=== PATIENT | female | born 1935 | race Caucasian/White ===

== ENCOUNTER → 2016-07-31 | Outpatient (REF) | payer MEDICARE ==
[~2016-07-31] MED LIST: ALBU17IN2 INH; ALBU83IN INH; ALPR0.25 PO; ASPI1TAB24 PO; AVEL1TAB PO; MUCI600T34 PO; NICO14PA TD; OS CAL PO; PLAV75TA38 PO; PRED20TAB PO; PRIL20CA9 PO; PRIL20TA2 PO; VIT D PO
== END ==
LOC: M LAB REF 12:16
PROVIDERS: ATTEND Internal Medicine Medical Oncology
DX: C18.9 Malignant neoplasm of colon, unspecified (principal)

== ENCOUNTER → 2016-09-30 | Outpatient (REF) | payer MEDICARE | LOC: M LAB REF 13:13 | PROVIDERS: ATTEND Internal Medicine Medical Oncology | DX: C26.0 Malignant neoplasm of intestinal tract, part unspecified (principal) ==

== ENCOUNTER → 2017-01-21 | Outpatient (REF) | payer MEDICARE ==
[~2017-01-21] MED LIST changes: +ASPI-161 PO; -ASPI1TAB24 PO; -AVEL1TAB PO; +AVEL1TAB3 PO; -MUCI600T34 PO; +MUCI600T37 PO; +PLAV1TAB2 PO; -PLAV75TA38 PO
== END ==
LOC: M LAB REF 13:39
PROVIDERS: ATTEND Internal Medicine Medical Oncology
DX: C18.9 Malignant neoplasm of colon, unspecified (principal)

== ENCOUNTER 2017-05-13 22:42 | Inpatient (IN) | payer MEDICARE, MEDICAID ==
[2017-05-13] MEDS: NS 500 ML IV (23:15)
[2017-05-13 23:21] LABS: BASO % 0.8 % (0.0-1.0); EOS # 0.2 10^3/uL (0.0-0.50); EOS % 3.2 % (0.0-3.0); HEMATOCRIT 35.8 % (36.0-47.0); HEMOGLOBIN 11.7 g/dl (12.0-16.0); IMMATURE GRANULOCYTE % 0.2 % (0-0); LYMPH # 1.7 10^3/uL (1.5-4.5); LYMPH % 34.4 % (24.0-44.0); MEAN CORPUSCULAR HEMOGLOBIN 29.9 pg (27.0-33.0); MEAN CORPUSCULAR HGB CONC 32.7 g/dl (32.0-36.5); MEAN CORPUSCULAR VOLUME 91.6 fl (80.0-96.0); MONO # 0.5 10^3/uL (0.0-0.8); MONO % 10.5 % (0.0-5.0); NEUTROPHILS # 2.5 10^3/uL (1.8-7.7); NEUTROPHILS % 50.9 % (36.0-66.0); PLATELET COUNT, AUTOMATED 196 10^3/uL (150-450); RED BLOOD COUNT 3.91 10^6/uL (4.00-5.40); RED CELL DISTRIBUTION WIDTH 13.4 % (11.5-14.5); WHITE BLOOD COUNT 4.9 10^3/uL (4.0-10.0)
[2017-05-13 23:37] LABS: OSMOLALITY SERUM 302 MOSM/KG (280-301)
[2017-05-13 23:40] LABS: AMMONIA 20 uMOL/L (<32)
[2017-05-13 23:44] LABS: LACTIC ACID SEPSIS PROTOCOL 0.7 MMOL/L (0.4-2.0)
[2017-05-13 23:54] LABS: ALBUMIN 3.4 GM/DL (3.2-5.2); ALBUMIN/GLOBULIN RATIO 1.21 (1.00-1.93); ALKALINE PHOSPHATASE 97 U/L (45-117); ALT/SGPT 13 U/L (12-78); ANION GAP 7 MEQ/L (8-16); AST/SGOT 17 U/L (7-37); BILIRUBIN,DIRECT 0.1 MG/DL (0.0-0.2); BILIRUBIN,TOTAL 0.3 MG/DL (0.2-1.0); BLOOD UREA NITROGEN 31 MG/DL (7-18); CALCIUM LEVEL 8.4 MG/DL (8.8-10.2); CARBON DIOXIDE LEVEL 28 MEQ/L (21-32); CHLORIDE LEVEL 108 MEQ/L (98-107); CPK CREATINE PHOSPHOKINASE 57 U/L (26-192); CREATININE FOR GFR 1.78 MG/DL (0.55-1.02); ETHYL ALCOHOL (ETHANOL) < 0.003 % (0.000-0.010); GLOMERULAR FILTRATION RATE 29.1 (>32); GLUCOSE, FASTING 128 MG/DL (83-110); POTASSIUM SERUM 3.8 MEQ/L (3.5-5.1); SODIUM LEVEL 143 MEQ/L (136-145); TOTAL PROTEIN 6.2 GM/DL (6.4-8.2); TROPONIN I < 0.02 NG/ML (< 0.10)
[2017-05-14] LABS: CK-MB VALUE MASS 1.2 NG/ML (0.0-3.6)
[2017-05-14 00:14] LABS: ABG BASE EXCESS 0.2 (-2.0-2.0); ABG O2 SATURATION 95.7 % (95.0-99.0); ABG STANDARD HCO3 24.6 MEQ/L (22.0-26.0); ABG TOTAL CO2 25.1 MEQ/L (23.0-31.0); ABG pH (ARTERIAL) 7.441 UNITS (7.350-7.450)
[2017-05-14 01:13] LABS: KETONE, URINE AUTO RFX NEGATIVE (NEGATIVE); LEUKOCYTE ESTERASE UR AUTO RFX 2+ (NEGATIVE); MUCUS, URINE RFX SMALL (NEGATIVE); NITRITE, URINE AUTO RFX NEGATIVE (NEGATIVE); RBC, URINE AUTO RFX 3 /HPF (0-3); SPECIFIC GRAVITY UR AUTO RFX 1.012 (1.002-1.035); SQUAM EPITHELIAL CELL UR AURFX 0 /HPF (0-6); WBC, URINE AUTO RFX 9 /HPF (0-3)
[2017-05-14] MEDS: NS 500 ML IV (02:00)
[2017-05-14] MEDS: NS 1,000 ML IV (03:45)
[2017-05-14] MEDS: CEFTRIAXONE SOD 1 GM in APPROPRIATE DILUENT 1 EA IV (04:00)
[2017-05-14] MEDS ORDERED: CLOPIDOGREL 75 MG TAB PO (09:00)
[2017-05-14] MEDS ORDERED: ASPIRIN 81 MG ENTERIC TAB PO (09:00)
[2017-05-14] MEDS ORDERED: ROSUVASTATIN 10 MG TAB (CRESTOR) PO (09:00)
[2017-05-14] MEDS: ROSUVASTATIN 10 MG TAB (CRESTOR) PO (09:47)
[2017-05-14] MEDS: ASPIRIN 81 MG ENTERIC TAB PO (09:48)
[2017-05-14] MEDS: CLOPIDOGREL 75 MG TAB PO (09:48)
[2017-05-14] MEDS ORDERED: zolPIDEM TARTRATE 5 MG TAB PO (21:00)
[2017-05-14] MEDS ORDERED: QUEtiapine FUMARATE 50 MG TAB PO (21:00)
[2017-05-14] MEDS ORDERED: traZODone 50 MG TAB PO ×2 (21:00)
[2017-05-14] MEDS: RAMELTEON 8 MG TAB (ROZEREM) PO (21:41)
[2017-05-14] MEDS: QUEtiapine FUMARATE 50 MG TAB PO (21:41)
[2017-05-15] MEDS: CEFTRIAXONE SOD 1 GM in APPROPRIATE DILUENT 1 EA IV (04:18)
[2017-05-15 06:31] LABS: HEMATOCRIT 35.4 % (36.0-47.0); HEMOGLOBIN 11.7 g/dl (12.0-16.0); MEAN CORPUSCULAR HEMOGLOBIN 29.8 pg (27.0-33.0); MEAN CORPUSCULAR HGB CONC 33.1 g/dl (32.0-36.5); MEAN CORPUSCULAR VOLUME 90.3 fl (80.0-96.0); PLATELET COUNT, AUTOMATED 176 10^3/uL (150-450); RED BLOOD COUNT 3.92 10^6/uL (4.00-5.40); RED CELL DISTRIBUTION WIDTH 13.4 % (11.5-14.5); WHITE BLOOD COUNT 4.7 10^3/uL (4.0-10.0)
[2017-05-15 07:09] LABS: ANION GAP 8 MEQ/L (8-16); BLOOD UREA NITROGEN 22 MG/DL (7-18); CALCIUM LEVEL 8.1 MG/DL (8.8-10.2); CARBON DIOXIDE LEVEL 22 MEQ/L (21-32); CHLORIDE LEVEL 114 MEQ/L (98-107); CREATININE FOR GFR 1.36 MG/DL (0.55-1.02); GLOMERULAR FILTRATION RATE 39.7 (>32); GLUCOSE, FASTING 77 MG/DL (83-110); POTASSIUM SERUM 4.2 MEQ/L (3.5-5.1); SODIUM LEVEL 144 MEQ/L (136-145)
[2017-05-15] MEDS: CLOPIDOGREL 75 MG TAB PO (09:18)
[2017-05-15] MEDS: ASPIRIN 81 MG ENTERIC TAB PO (09:18)
[2017-05-15] MEDS: ROSUVASTATIN 10 MG TAB (CRESTOR) PO (09:18)
[2017-05-15 09:51] LABS: FREE T4 1.06 NG/DL (0.76-1.46)
[2017-05-15] MEDS ORDERED: KCL 20MEQ IN 0.45NS 1000ML 1,000 ML IV (10:00)
[2017-05-15] MEDS: HALOPERIDOL 0.25MG PER 1/2 TABLET PO ×2 (14:18→21:09)
[2017-05-15] MEDS: RAMELTEON 8 MG TAB (ROZEREM) PO (21:09)
[2017-05-15] MEDS: QUEtiapine FUMARATE 50 MG TAB PO (21:09)
[2017-05-15] MEDS: CALCIUM CARBONATE 500 MG CHEW U/D PO (21:46)
[2017-05-16] MEDS: diphenhydrAMINE 25 MG CAP PO (00:45)
[2017-05-16 08:25] LABS: HEMATOCRIT 36.9 % (36.0-47.0); HEMOGLOBIN 12.2 g/dl (12.0-16.0); MEAN CORPUSCULAR HEMOGLOBIN 29.9 pg (27.0-33.0); MEAN CORPUSCULAR HGB CONC 33.1 g/dl (32.0-36.5); MEAN CORPUSCULAR VOLUME 90.4 fl (80.0-96.0); PLATELET COUNT, AUTOMATED 185 10^3/uL (150-450); RED BLOOD COUNT 4.08 10^6/uL (4.00-5.40); RED CELL DISTRIBUTION WIDTH 13.3 % (11.5-14.5); WHITE BLOOD COUNT 4.3 10^3/uL (4.0-10.0)
[2017-05-16] MEDS: ROSUVASTATIN 10 MG TAB (CRESTOR) PO (08:32)
[2017-05-16] MEDS: CLOPIDOGREL 75 MG TAB PO (08:32)
[2017-05-16] MEDS: ASPIRIN 81 MG ENTERIC TAB PO (08:32)
[2017-05-16] MEDS: HALOPERIDOL 0.25MG PER 1/2 TABLET PO (08:32)
[2017-05-16 08:47] LABS: ANION GAP 7 MEQ/L (8-16); BLOOD UREA NITROGEN 24 MG/DL (7-18); CALCIUM LEVEL 8.3 MG/DL (8.8-10.2); CARBON DIOXIDE LEVEL 23 MEQ/L (21-32); CHLORIDE LEVEL 113 MEQ/L (98-107); CREATININE FOR GFR 1.55 MG/DL (0.55-1.02); GLOMERULAR FILTRATION RATE 34.2 (>32); GLUCOSE, FASTING 81 MG/DL (83-110); POTASSIUM SERUM 4.9 MEQ/L (3.5-5.1); SODIUM LEVEL 143 MEQ/L (136-145)
[2017-05-16] MEDS ORDERED: D5W/0.45% SODIUM CHLORIDE 1,000 ML IV (11:30)
[2017-05-16] MEDS: NS 1,000 ML IV (12:25)
[2017-05-16] MEDS: RAMELTEON 8 MG TAB (ROZEREM) PO (21:01)
[2017-05-16] MEDS: HALOPERIDOL 0.5 MG TAB PO (21:01)
[2017-05-16] MEDS: QUEtiapine FUMARATE 50 MG TAB PO (21:01)
[2017-05-17 07:17] LABS: HEMATOCRIT 36.7 % (36.0-47.0); HEMOGLOBIN 12.2 g/dl (12.0-16.0); MEAN CORPUSCULAR HEMOGLOBIN 30.5 pg (27.0-33.0); MEAN CORPUSCULAR HGB CONC 33.2 g/dl (32.0-36.5); MEAN CORPUSCULAR VOLUME 91.8 fl (80.0-96.0); PLATELET COUNT, AUTOMATED 188 10^3/uL (150-450); RED CELL DISTRIBUTION WIDTH 13.5 % (11.5-14.5); WHITE BLOOD COUNT 4.8 10^3/uL (4.0-10.0)
[2017-05-17 07:28] LABS: ANION GAP 7 MEQ/L (8-16); BLOOD UREA NITROGEN 30 MG/DL (7-18); CALCIUM LEVEL 8.4 MG/DL (8.8-10.2); CARBON DIOXIDE LEVEL 26 MEQ/L (21-32); CHLORIDE LEVEL 111 MEQ/L (98-107); CREATININE FOR GFR 1.56 MG/DL (0.55-1.02); GLOMERULAR FILTRATION RATE 33.9 (>32); GLUCOSE, FASTING 84 MG/DL (83-110); POTASSIUM SERUM 4.6 MEQ/L (3.5-5.1); SODIUM LEVEL 144 MEQ/L (136-145)
[2017-05-17] MEDS: HALOPERIDOL 0.5 MG TAB PO ×2 (09:48→20:26)
[2017-05-17] MEDS: ASPIRIN 81 MG ENTERIC TAB PO (09:48)
[2017-05-17] MEDS: ROSUVASTATIN 10 MG TAB (CRESTOR) PO (09:48)
[2017-05-17] MEDS: CLOPIDOGREL 75 MG TAB PO (09:48)
[2017-05-17 10:30] LABS: VITAMIN B12 LEVEL 259 PG/ML
[2017-05-17 10:31] LABS: FOLATE 23.5 NG/ML
[2017-05-17] MEDS: HALOPERIDOL 0.25MG PER 1/2 TABLET PO (14:32)
[2017-05-17] MEDS: QUEtiapine FUMARATE 50 MG TAB PO (20:26)
[2017-05-17] MEDS: RAMELTEON 8 MG TAB (ROZEREM) PO (20:26)
[2017-05-17] MEDS ORDERED: HALOPERIDOL 5 MG/ML VIAL (J1630) IM (21:00)
[2017-05-17] MEDS: diphenhydrAMINE 25 MG CAP PO (22:40)
[2017-05-18] MEDS: HALOPERIDOL 5 MG/ML VIAL (J1630) IM (00:24)
[2017-05-18] MEDS: HALOPERIDOL 0.25MG PER 1/2 TABLET PO ×2 (02:15→15:57)
[2017-05-18 06:43] LABS: HEMATOCRIT 35.9 % (36.0-47.0); HEMOGLOBIN 11.8 g/dl (12.0-16.0); MEAN CORPUSCULAR HEMOGLOBIN 29.9 pg (27.0-33.0); MEAN CORPUSCULAR HGB CONC 32.9 g/dl (32.0-36.5); MEAN CORPUSCULAR VOLUME 91.1 fl (80.0-96.0); PLATELET COUNT, AUTOMATED 181 10^3/uL (150-450); RED BLOOD COUNT 3.94 10^6/uL (4.00-5.40); RED CELL DISTRIBUTION WIDTH 13.5 % (11.5-14.5); WHITE BLOOD COUNT 4.9 10^3/uL (4.0-10.0)
[2017-05-18 06:56] LABS: ANION GAP 8 MEQ/L (8-16); BLOOD UREA NITROGEN 35 MG/DL (7-18); CALCIUM LEVEL 8.7 MG/DL (8.8-10.2); CARBON DIOXIDE LEVEL 25 MEQ/L (21-32); CHLORIDE LEVEL 111 MEQ/L (98-107); CREATININE FOR GFR 1.68 MG/DL (0.55-1.02); GLOMERULAR FILTRATION RATE 31.1 (>32); GLUCOSE, FASTING 78 MG/DL (83-110); POTASSIUM SERUM 4.2 MEQ/L (3.5-5.1); SODIUM LEVEL 144 MEQ/L (136-145)
[2017-05-18] MEDS: CLOPIDOGREL 75 MG TAB PO (08:41)
[2017-05-18] MEDS: HALOPERIDOL 0.5 MG TAB PO ×2 (08:41→20:52)
[2017-05-18] MEDS: ASPIRIN 81 MG ENTERIC TAB PO (08:41)
[2017-05-18] MEDS: QUEtiapine FUMARATE 25 MG TAB PO ×2 (08:41→20:52)
[2017-05-18] MEDS: ROSUVASTATIN 10 MG TAB (CRESTOR) PO (08:41)
[2017-05-18] MEDS: NS 1,000 ML IV (09:05)
[2017-05-18] MEDS: HEPARIN SOD (PORCINE) 5000 UNITS/ML VIAL SQ ×2 (15:57→21:00)
[2017-05-18] MEDS: RAMELTEON 8 MG TAB (ROZEREM) PO (20:52)
[2017-05-19] MEDS: HEPARIN SOD (PORCINE) 5000 UNITS/ML VIAL SQ ×3 (05:59→21:08)
[2017-05-19 06:23] LABS: HEMATOCRIT 33.4 % (36.0-47.0); HEMOGLOBIN 11.2 g/dl (12.0-16.0); MEAN CORPUSCULAR HEMOGLOBIN 29.6 pg (27.0-33.0); MEAN CORPUSCULAR HGB CONC 33.5 g/dl (32.0-36.5); MEAN CORPUSCULAR VOLUME 88.4 fl (80.0-96.0); PLATELET COUNT, AUTOMATED 165 10^3/uL (150-450); RED BLOOD COUNT 3.78 10^6/uL (4.00-5.40); RED CELL DISTRIBUTION WIDTH 13.6 % (11.5-14.5); WHITE BLOOD COUNT 4.2 10^3/uL (4.0-10.0)
[2017-05-19 06:38] LABS: ANION GAP 8 MEQ/L (8-16); BLOOD UREA NITROGEN 36 MG/DL (7-18); CARBON DIOXIDE LEVEL 23 MEQ/L (21-32); CHLORIDE LEVEL 114 MEQ/L (98-107); CREATININE FOR GFR 1.43 MG/DL (0.55-1.02); GLOMERULAR FILTRATION RATE 37.5 (>32); GLUCOSE, FASTING 83 MG/DL (83-110); POTASSIUM SERUM 4.4 MEQ/L (3.5-5.1); SODIUM LEVEL 145 MEQ/L (136-145)
[2017-05-19] MEDS: ASPIRIN 81 MG ENTERIC TAB PO (09:49)
[2017-05-19] MEDS: QUEtiapine FUMARATE 25 MG TAB PO ×2 (09:49→21:08)
[2017-05-19] MEDS: HALOPERIDOL 0.5 MG TAB PO ×2 (09:49→21:08)
[2017-05-19] MEDS: ROSUVASTATIN 10 MG TAB (CRESTOR) PO (09:49)
[2017-05-19] MEDS: CLOPIDOGREL 75 MG TAB PO (09:49)
[2017-05-19] MEDS: HALOPERIDOL 0.25MG PER 1/2 TABLET PO ×2 (14:31→22:11)
[2017-05-19] MEDS: CALCIUM CARBONATE 500 MG CHEW U/D PO (18:54)
[2017-05-19] MEDS: RAMELTEON 8 MG TAB (ROZEREM) PO (21:08)
[2017-05-19] MEDS: HALOPERIDOL 1 MG TAB PO (23:40)
[2017-05-20] MEDS: HEPARIN SOD (PORCINE) 5000 UNITS/ML VIAL SQ (05:17)
[2017-05-20 07:24] LABS: HEMATOCRIT 34.6 % (36.0-47.0); HEMOGLOBIN 11.3 g/dl (12.0-16.0); MEAN CORPUSCULAR HEMOGLOBIN 29.3 pg (27.0-33.0); MEAN CORPUSCULAR HGB CONC 32.7 g/dl (32.0-36.5); MEAN CORPUSCULAR VOLUME 89.6 fl (80.0-96.0); PLATELET COUNT, AUTOMATED 177 10^3/uL (150-450); RED BLOOD COUNT 3.86 10^6/uL (4.00-5.40); RED CELL DISTRIBUTION WIDTH 13.4 % (11.5-14.5); WHITE BLOOD COUNT 4.5 10^3/uL (4.0-10.0)
[2017-05-20 07:41] LABS: ANION GAP 7 MEQ/L (8-16); BLOOD UREA NITROGEN 33 MG/DL (7-18); CALCIUM LEVEL 8.6 MG/DL (8.8-10.2); CARBON DIOXIDE LEVEL 26 MEQ/L (21-32); CHLORIDE LEVEL 112 MEQ/L (98-107); CREATININE FOR GFR 1.65 MG/DL (0.55-1.02); GLOMERULAR FILTRATION RATE 31.8 (>32); GLUCOSE, FASTING 73 MG/DL (83-110); POTASSIUM SERUM 4.4 MEQ/L (3.5-5.1); SODIUM LEVEL 145 MEQ/L (136-145)
[2017-05-20] MEDS: CLOPIDOGREL 75 MG TAB PO (09:33)
[2017-05-20] MEDS: QUEtiapine FUMARATE 25 MG TAB PO ×2 (09:33→21:24)
[2017-05-20] MEDS: HALOPERIDOL 0.5 MG TAB PO ×2 (09:33→21:25)
[2017-05-20] MEDS: ROSUVASTATIN 10 MG TAB (CRESTOR) PO (09:33)
[2017-05-20] MEDS: ASPIRIN 81 MG ENTERIC TAB PO (09:33)
[2017-05-20] MEDS: RAMELTEON 8 MG TAB (ROZEREM) PO (21:24)
[2017-05-21] MEDS: HALOPERIDOL 5 MG/ML VIAL (J1630) IM (01:45)
[2017-05-21 07:00] LABS: HEMATOCRIT 34.4 % (36.0-47.0); HEMOGLOBIN 11.1 g/dl (12.0-16.0); MEAN CORPUSCULAR HEMOGLOBIN 29.5 pg (27.0-33.0); MEAN CORPUSCULAR HGB CONC 32.3 g/dl (32.0-36.5); MEAN CORPUSCULAR VOLUME 91.5 fl (80.0-96.0); PLATELET COUNT, AUTOMATED 165 10^3/uL (150-450); RED BLOOD COUNT 3.76 10^6/uL (4.00-5.40); RED CELL DISTRIBUTION WIDTH 13.7 % (11.5-14.5); WHITE BLOOD COUNT 4.3 10^3/uL (4.0-10.0)
[2017-05-21 07:18] LABS: ANION GAP 10 MEQ/L (8-16); BLOOD UREA NITROGEN 36 MG/DL (7-18); CALCIUM LEVEL 8.3 MG/DL (8.8-10.2); CARBON DIOXIDE LEVEL 23 MEQ/L (21-32); CHLORIDE LEVEL 112 MEQ/L (98-107); CREATININE FOR GFR 1.56 MG/DL (0.55-1.02); GLOMERULAR FILTRATION RATE 33.9 (>32); GLUCOSE, FASTING 88 MG/DL (83-110); POTASSIUM SERUM 4.7 MEQ/L (3.5-5.1); SODIUM LEVEL 145 MEQ/L (136-145)
[2017-05-21] MEDS: CLOPIDOGREL 75 MG TAB PO (09:19)
[2017-05-21] MEDS: ROSUVASTATIN 10 MG TAB (CRESTOR) PO (09:19)
[2017-05-21] MEDS: QUEtiapine FUMARATE 25 MG TAB PO ×2 (09:19→20:49)
[2017-05-21] MEDS: HALOPERIDOL 0.5 MG TAB PO ×2 (09:19→20:49)
[2017-05-21] MEDS: ASPIRIN 81 MG ENTERIC TAB PO (09:19)
[2017-05-21] MEDS: RAMELTEON 8 MG TAB (ROZEREM) PO (20:49)
[2017-05-22 08:43] LABS: ANION GAP 8 MEQ/L (8-16); BLOOD UREA NITROGEN 37 MG/DL (7-18); CALCIUM LEVEL 8.5 MG/DL (8.8-10.2); CARBON DIOXIDE LEVEL 26 MEQ/L (21-32); CHLORIDE LEVEL 108 MEQ/L (98-107); CREATININE FOR GFR 1.61 MG/DL (0.55-1.02); GLOMERULAR FILTRATION RATE 32.7 (>32); GLUCOSE, FASTING 103 MG/DL (83-110); MAGNESIUM LEVEL 2.3 MG/DL (1.8-2.4); POTASSIUM SERUM 4.5 MEQ/L (3.5-5.1); SODIUM LEVEL 142 MEQ/L (136-145)
[2017-05-22] MEDS: CLOPIDOGREL 75 MG TAB PO (08:47)
[2017-05-22] MEDS: QUEtiapine FUMARATE 25 MG TAB PO ×2 (08:47→20:06)
[2017-05-22] MEDS: ASPIRIN 81 MG ENTERIC TAB PO (08:47)
[2017-05-22] MEDS: ROSUVASTATIN 10 MG TAB (CRESTOR) PO (08:47)
[2017-05-22] MEDS: HALOPERIDOL 0.5 MG TAB PO ×2 (08:47→20:06)
[2017-05-22 08:52] LABS: HEMATOCRIT 34.8 % (36.0-47.0); HEMOGLOBIN 11.4 g/dl (12.0-16.0); MEAN CORPUSCULAR HEMOGLOBIN 29.8 pg (27.0-33.0); MEAN CORPUSCULAR HGB CONC 32.8 g/dl (32.0-36.5); MEAN CORPUSCULAR VOLUME 90.9 fl (80.0-96.0); PLATELET COUNT, AUTOMATED 168 10^3/uL (150-450); RED BLOOD COUNT 3.83 10^6/uL (4.00-5.40); RED CELL DISTRIBUTION WIDTH 13.6 % (11.5-14.5); WHITE BLOOD COUNT 4.7 10^3/uL (4.0-10.0)
[2017-05-22] MEDS: RAMELTEON 8 MG TAB (ROZEREM) PO (20:06)
[2017-05-23 07:58] LABS: HEMATOCRIT 34.3 % (36.0-47.0); HEMOGLOBIN 11.4 g/dl (12.0-16.0); MEAN CORPUSCULAR HEMOGLOBIN 30.1 pg (27.0-33.0); MEAN CORPUSCULAR HGB CONC 33.2 g/dl (32.0-36.5); MEAN CORPUSCULAR VOLUME 90.5 fl (80.0-96.0); PLATELET COUNT, AUTOMATED 176 10^3/uL (150-450); RED BLOOD COUNT 3.79 10^6/uL (4.00-5.40); RED CELL DISTRIBUTION WIDTH 13.7 % (11.5-14.5); WHITE BLOOD COUNT 4.6 10^3/uL (4.0-10.0)
[2017-05-23 08:30] LABS: ANION GAP 6 MEQ/L (8-16); BLOOD UREA NITROGEN 42 MG/DL (7-18); CALCIUM LEVEL 8.5 MG/DL (8.8-10.2); CARBON DIOXIDE LEVEL 27 MEQ/L (21-32); CHLORIDE LEVEL 110 MEQ/L (98-107); CREATININE FOR GFR 1.74 MG/DL (0.55-1.02); GLOMERULAR FILTRATION RATE 29.9 (>32); GLUCOSE, FASTING 94 MG/DL (83-110); MAGNESIUM LEVEL 2.5 MG/DL (1.8-2.4); POTASSIUM SERUM 4.6 MEQ/L (3.5-5.1); SODIUM LEVEL 143 MEQ/L (136-145)
[2017-05-23] MEDS: CLOPIDOGREL 75 MG TAB PO (10:10)
[2017-05-23] MEDS: HALOPERIDOL 0.5 MG TAB PO ×2 (10:10→21:23)
[2017-05-23] MEDS: ROSUVASTATIN 10 MG TAB (CRESTOR) PO (10:10)
[2017-05-23] MEDS: ASPIRIN 81 MG ENTERIC TAB PO (10:10)
[2017-05-23] MEDS: QUEtiapine FUMARATE 25 MG TAB PO ×2 (10:10→21:23)
[2017-05-23] MEDS: FUROSEMIDE 20 MG TAB PO (12:06)
[2017-05-23] MEDS: RAMELTEON 8 MG TAB (ROZEREM) PO (21:23)
[2017-05-24] MEDS: QUEtiapine FUMARATE 25 MG TAB PO ×2 (09:08→20:11)
[2017-05-24] MEDS: HALOPERIDOL 0.5 MG TAB PO ×2 (09:08→20:11)
[2017-05-24] MEDS: ROSUVASTATIN 10 MG TAB (CRESTOR) PO (09:08)
[2017-05-24] MEDS: ASPIRIN 81 MG ENTERIC TAB PO (09:08)
[2017-05-24] MEDS: CLOPIDOGREL 75 MG TAB PO (09:08)
[2017-05-24 09:37] LABS: HEMOGLOBIN 12.3 g/dl (12.0-16.0); MEAN CORPUSCULAR HEMOGLOBIN 29.9 pg (27.0-33.0); MEAN CORPUSCULAR HGB CONC 33.2 g/dl (32.0-36.5); PLATELET COUNT, AUTOMATED 183 10^3/uL (150-450); RED BLOOD COUNT 4.11 10^6/uL (4.00-5.40); RED CELL DISTRIBUTION WIDTH 13.3 % (11.5-14.5); WHITE BLOOD COUNT 4.1 10^3/uL (4.0-10.0)
[2017-05-24 09:50] LABS: ANION GAP 8 MEQ/L (8-16); BLOOD UREA NITROGEN 38 MG/DL (7-18); CALCIUM LEVEL 8.4 MG/DL (8.8-10.2); CARBON DIOXIDE LEVEL 26 MEQ/L (21-32); CHLORIDE LEVEL 109 MEQ/L (98-107); CREATININE FOR GFR 1.86 MG/DL (0.55-1.02); GLOMERULAR FILTRATION RATE 27.7 (>32); GLUCOSE, FASTING 112 MG/DL (83-110); MAGNESIUM LEVEL 2.4 MG/DL (1.8-2.4); POTASSIUM SERUM 4.5 MEQ/L (3.5-5.1); SODIUM LEVEL 143 MEQ/L (136-145)
[2017-05-24] MEDS: RAMELTEON 8 MG TAB (ROZEREM) PO (20:11)
[2017-05-24] MEDS: HALOPERIDOL 1 MG TAB PO (21:53)
[2017-05-25] MEDS: ASPIRIN 81 MG ENTERIC TAB PO (09:12)
[2017-05-25] MEDS: ROSUVASTATIN 10 MG TAB (CRESTOR) PO (09:12)
[2017-05-25] MEDS: CLOPIDOGREL 75 MG TAB PO (09:12)
[2017-05-25] MEDS: HALOPERIDOL 0.5 MG TAB PO ×2 (09:12→19:38)
[2017-05-25] MEDS: QUEtiapine FUMARATE 25 MG TAB PO ×2 (09:12→19:38)
[2017-05-25 09:56] LABS: HEMATOCRIT 37.5 % (36.0-47.0); HEMOGLOBIN 12.3 g/dl (12.0-16.0); MEAN CORPUSCULAR HEMOGLOBIN 29.6 pg (27.0-33.0); MEAN CORPUSCULAR HGB CONC 32.8 g/dl (32.0-36.5); MEAN CORPUSCULAR VOLUME 90.1 fl (80.0-96.0); PLATELET COUNT, AUTOMATED 185 10^3/uL (150-450); RED BLOOD COUNT 4.16 10^6/uL (4.00-5.40); RED CELL DISTRIBUTION WIDTH 13.2 % (11.5-14.5); WHITE BLOOD COUNT 4.1 10^3/uL (4.0-10.0)
[2017-05-25 10:18] LABS: ANION GAP 8 MEQ/L (8-16); BLOOD UREA NITROGEN 38 MG/DL (7-18); CALCIUM LEVEL 8.6 MG/DL (8.8-10.2); CARBON DIOXIDE LEVEL 27 MEQ/L (21-32); CHLORIDE LEVEL 108 MEQ/L (98-107); CREATININE FOR GFR 1.86 MG/DL (0.55-1.02); GLOMERULAR FILTRATION RATE 27.7 (>32); GLUCOSE, FASTING 77 MG/DL (83-110); MAGNESIUM LEVEL 2.5 MG/DL (1.8-2.4); POTASSIUM SERUM 4.5 MEQ/L (3.5-5.1); SODIUM LEVEL 143 MEQ/L (136-145)
[2017-05-25] MEDS: ACETAMINOPHEN TAB 650MG DOSE (2X325MG) PO (13:13)
[2017-05-25] MEDS: SODIUM CHLORIDE 0.9% INJ 10 ML SYR IV (15:27)
[2017-05-25] MEDS ORDERED: NS 1,000 ML IV (15:45)
[2017-05-25] MEDS: SODIUM CHLORIDE 0.9% 1000 ML IV (17:20)
[2017-05-25 18:19] LABS: APPEARANCE, URINE CLEAR (CLEAR); BACTERIA, URINE AUTO NEGATIVE (NEGATIVE); BILIRUBIN, URINE AUTO NEGATIVE (NEGATIVE); BLOOD, URINE BLOOD NEGATIVE (NEGATIVE); COLOR, URINE STRAW (YELLOW); GLUCOSE, URINE (UA) AUTO NEGATIVE (NEGATIVE); KETONE, URINE AUTO NEGATIVE (NEGATIVE); LEUKOCYTE ESTERASE, URINE AUTO NEGATIVE (NEGATIVE); NITRITE, URINE AUTO NEGATIVE (NEGATIVE); PROTEIN, URINE AUTO NEGATIVE (NEGATIVE); RBC, URINE AUTO 2 /HPF (0-3); SPECIFIC GRAVITY URINE AUTO 1.005 (1.002-1.035); SQUAMOUS EPITHELIAL CELL UR AU 0 /HPF (0-6); UROBILINOGEN, URINE AUTO 0.2 mg/dL (0.0-2.0); WBC, URINE AUTO 1 /HPF (0-3)
[2017-05-25] MEDS: NS 1,000 ML IV ×2 (18:32→23:11)
[2017-05-25 19:12] LABS: CREATININE,RANDOM URINE 41.5 MG/DL
[2017-05-25 19:12] LABS: SODIUM,RANDOM URINE 30 MEQ/L
[2017-05-25] MEDS: RAMELTEON 8 MG TAB (ROZEREM) PO (19:38)
[2017-05-25] MEDS: HALOPERIDOL 1 MG TAB PO (19:38)
[2017-05-26] MEDS: HALOPERIDOL 0.5 MG TAB PO ×2 (08:50→21:05)
[2017-05-26] MEDS: ASPIRIN 81 MG ENTERIC TAB PO (08:50)
[2017-05-26] MEDS: CLOPIDOGREL 75 MG TAB PO (08:50)
[2017-05-26] MEDS: QUEtiapine FUMARATE 25 MG TAB PO ×2 (08:50→21:05)
[2017-05-26] MEDS: ROSUVASTATIN 10 MG TAB (CRESTOR) PO (08:50)
[2017-05-26 11:14] LABS: HEMATOCRIT 34.6 % (36.0-47.0); HEMOGLOBIN 11.3 g/dl (12.0-16.0); MEAN CORPUSCULAR HEMOGLOBIN 30.1 pg (27.0-33.0); MEAN CORPUSCULAR HGB CONC 32.7 g/dl (32.0-36.5); PLATELET COUNT, AUTOMATED 171 10^3/uL (150-450); RED BLOOD COUNT 3.76 10^6/uL (4.00-5.40); RED CELL DISTRIBUTION WIDTH 13.3 % (11.5-14.5); WHITE BLOOD COUNT 3.6 10^3/uL (4.0-10.0)
[2017-05-26 11:49] LABS: ANION GAP 8 MEQ/L (8-16); BLOOD UREA NITROGEN 33 MG/DL (7-18); CALCIUM LEVEL 8.2 MG/DL (8.8-10.2); CARBON DIOXIDE LEVEL 23 MEQ/L (21-32); CHLORIDE LEVEL 112 MEQ/L (98-107); CREATININE FOR GFR 1.62 MG/DL (0.55-1.02); GLOMERULAR FILTRATION RATE 32.5 (>32); GLUCOSE, FASTING 93 MG/DL (83-110); MAGNESIUM LEVEL 2.5 MG/DL (1.8-2.4); POTASSIUM SERUM 4.4 MEQ/L (3.5-5.1); SODIUM LEVEL 143 MEQ/L (136-145)
[2017-05-26] MEDS: RAMELTEON 8 MG TAB (ROZEREM) PO (21:05)
[2017-05-27 06:04] LABS: HEMATOCRIT 32.8 % (36.0-47.0); HEMOGLOBIN 10.7 g/dl (12.0-16.0); MEAN CORPUSCULAR HEMOGLOBIN 29.6 pg (27.0-33.0); MEAN CORPUSCULAR HGB CONC 32.6 g/dl (32.0-36.5); MEAN CORPUSCULAR VOLUME 90.9 fl (80.0-96.0); PLATELET COUNT, AUTOMATED 164 10^3/uL (150-450); RED BLOOD COUNT 3.61 10^6/uL (4.00-5.40); RED CELL DISTRIBUTION WIDTH 13.4 % (11.5-14.5); WHITE BLOOD COUNT 4.4 10^3/uL (4.0-10.0)
[2017-05-27 06:25] LABS: ANION GAP 7 MEQ/L (8-16); BLOOD UREA NITROGEN 31 MG/DL (7-18); CALCIUM LEVEL 8.2 MG/DL (8.8-10.2); CARBON DIOXIDE LEVEL 24 MEQ/L (21-32); CHLORIDE LEVEL 113 MEQ/L (98-107); CREATININE FOR GFR 1.58 MG/DL (0.55-1.02); GLOMERULAR FILTRATION RATE 33.4 (>32); GLUCOSE, FASTING 79 MG/DL (83-110); MAGNESIUM LEVEL 2.3 MG/DL (1.8-2.4); POTASSIUM SERUM 4.2 MEQ/L (3.5-5.1); SODIUM LEVEL 144 MEQ/L (136-145)
[2017-05-27] MEDS: ASPIRIN 81 MG ENTERIC TAB PO (09:09)
[2017-05-27] MEDS: CLOPIDOGREL 75 MG TAB PO (09:09)
[2017-05-27] MEDS: QUEtiapine FUMARATE 25 MG TAB PO ×2 (09:09→20:40)
[2017-05-27] MEDS: HALOPERIDOL 0.5 MG TAB PO ×2 (09:09→20:40)
[2017-05-27] MEDS: ROSUVASTATIN 10 MG TAB (CRESTOR) PO (09:09)
[2017-05-27] MEDS: RAMELTEON 8 MG TAB (ROZEREM) PO (20:40)
[2017-05-27] MEDS: ACETAMINOPHEN TAB 650MG DOSE (2X325MG) PO (20:41)
[2017-05-28 06:48] LABS: HEMATOCRIT 34.8 % (36.0-47.0); HEMOGLOBIN 11.3 g/dl (12.0-16.0); MEAN CORPUSCULAR HEMOGLOBIN 29.7 pg (27.0-33.0); MEAN CORPUSCULAR HGB CONC 32.5 g/dl (32.0-36.5); MEAN CORPUSCULAR VOLUME 91.3 fl (80.0-96.0); PLATELET COUNT, AUTOMATED 171 10^3/uL (150-450); RED BLOOD COUNT 3.81 10^6/uL (4.00-5.40); RED CELL DISTRIBUTION WIDTH 13.3 % (11.5-14.5); WHITE BLOOD COUNT 4.6 10^3/uL (4.0-10.0)
[2017-05-28 07:11] LABS: ANION GAP 7 MEQ/L (8-16); BLOOD UREA NITROGEN 36 MG/DL (7-18); CALCIUM LEVEL 8.7 MG/DL (8.8-10.2); CARBON DIOXIDE LEVEL 25 MEQ/L (21-32); CHLORIDE LEVEL 112 MEQ/L (98-107); CREATININE FOR GFR 1.54 MG/DL (0.55-1.02); GLOMERULAR FILTRATION RATE 34.4 (>32); GLUCOSE, FASTING 83 MG/DL (83-110); MAGNESIUM LEVEL 2.3 MG/DL (1.8-2.4); POTASSIUM SERUM 4.2 MEQ/L (3.5-5.1); SODIUM LEVEL 144 MEQ/L (136-145)
[2017-05-28] MEDS: CLOPIDOGREL 75 MG TAB PO ×2 (08:50→08:59)
[2017-05-28] MEDS: HALOPERIDOL 0.5 MG TAB PO ×2 (08:50→21:17)
[2017-05-28] MEDS: ASPIRIN 81 MG ENTERIC TAB PO ×2 (08:50→08:59)
[2017-05-28] MEDS: ROSUVASTATIN 10 MG TAB (CRESTOR) PO (08:50)
[2017-05-28] MEDS: QUEtiapine FUMARATE 25 MG TAB PO ×2 (08:50→21:18)
[2017-05-28] MEDS: HALOPERIDOL 5 MG/ML VIAL (J1630) IM (09:49)
[2017-05-28] MEDS: RAMELTEON 8 MG TAB (ROZEREM) PO (21:17)
[2017-05-29 05:58] LABS: HEMATOCRIT 33.1 % (36.0-47.0); HEMOGLOBIN 10.8 g/dl (12.0-16.0); MEAN CORPUSCULAR HEMOGLOBIN 29.3 pg (27.0-33.0); MEAN CORPUSCULAR HGB CONC 32.6 g/dl (32.0-36.5); MEAN CORPUSCULAR VOLUME 89.9 fl (80.0-96.0); PLATELET COUNT, AUTOMATED 196 10^3/uL (150-450); RED BLOOD COUNT 3.68 10^6/uL (4.00-5.40); RED CELL DISTRIBUTION WIDTH 13.4 % (11.5-14.5); WHITE BLOOD COUNT 5.6 10^3/uL (4.0-10.0)
[2017-05-29 06:23] LABS: ANION GAP 8 MEQ/L (8-16); BLOOD UREA NITROGEN 31 MG/DL (7-18); CALCIUM LEVEL 8.3 MG/DL (8.8-10.2); CARBON DIOXIDE LEVEL 24 MEQ/L (21-32); CHLORIDE LEVEL 112 MEQ/L (98-107); CREATININE FOR GFR 1.63 MG/DL (0.55-1.02); GLOMERULAR FILTRATION RATE 32.2 (>32); GLUCOSE, FASTING 84 MG/DL (83-110); MAGNESIUM LEVEL 2.4 MG/DL (1.8-2.4); POTASSIUM SERUM 4.5 MEQ/L (3.5-5.1); SODIUM LEVEL 144 MEQ/L (136-145)
[2017-05-29] MEDS: QUEtiapine FUMARATE 25 MG TAB PO ×2 (08:50→21:49)
[2017-05-29] MEDS: ROSUVASTATIN 10 MG TAB (CRESTOR) PO (08:50)
[2017-05-29] MEDS: ASPIRIN 81 MG ENTERIC TAB PO (08:50)
[2017-05-29] MEDS: CLOPIDOGREL 75 MG TAB PO (08:50)
[2017-05-29] MEDS: HALOPERIDOL 0.5 MG TAB PO ×2 (08:50→21:49)
[2017-05-29] MEDS: RAMELTEON 8 MG TAB (ROZEREM) PO (21:49)
[2017-05-30] MEDS: QUEtiapine FUMARATE 25 MG TAB PO ×2 (07:50→20:30)
[2017-05-30] MEDS: HALOPERIDOL 0.5 MG TAB PO ×2 (07:50→20:30)
[2017-05-30] MEDS: ROSUVASTATIN 10 MG TAB (CRESTOR) PO (07:51)
[2017-05-30] MEDS: ASPIRIN 81 MG ENTERIC TAB PO (07:51)
[2017-05-30] MEDS: CLOPIDOGREL 75 MG TAB PO (07:51)
[2017-05-30 09:47] LABS: HEMATOCRIT 35.2 % (36.0-47.0); HEMOGLOBIN 11.5 g/dl (12.0-16.0); MEAN CORPUSCULAR HEMOGLOBIN 29.9 pg (27.0-33.0); MEAN CORPUSCULAR HGB CONC 32.7 g/dl (32.0-36.5); MEAN CORPUSCULAR VOLUME 91.4 fl (80.0-96.0); PLATELET COUNT, AUTOMATED 189 10^3/uL (150-450); RED BLOOD COUNT 3.85 10^6/uL (4.00-5.40); RED CELL DISTRIBUTION WIDTH 13.4 % (11.5-14.5); WHITE BLOOD COUNT 5.8 10^3/uL (4.0-10.0)
[2017-05-30 10:08] LABS: ANION GAP 8 MEQ/L (8-16); BLOOD UREA NITROGEN 28 MG/DL (7-18); CALCIUM LEVEL 8.4 MG/DL (8.8-10.2); CARBON DIOXIDE LEVEL 26 MEQ/L (21-32); CHLORIDE LEVEL 111 MEQ/L (98-107); CREATININE FOR GFR 1.73 MG/DL (0.55-1.02); GLOMERULAR FILTRATION RATE 30.1 (>32); GLUCOSE, FASTING 98 MG/DL (83-110); MAGNESIUM LEVEL 2.4 MG/DL (1.8-2.4); POTASSIUM SERUM 4.6 MEQ/L (3.5-5.1); SODIUM LEVEL 145 MEQ/L (136-145)
[2017-05-30] MEDS: RAMELTEON 8 MG TAB (ROZEREM) PO (20:30)
[2017-05-31] MEDS: HALOPERIDOL 0.5 MG TAB PO ×2 (09:12→20:19)
[2017-05-31] MEDS: QUEtiapine FUMARATE 25 MG TAB PO ×2 (09:12→20:19)
[2017-05-31] MEDS: ROSUVASTATIN 10 MG TAB (CRESTOR) PO (09:12)
[2017-05-31] MEDS: CLOPIDOGREL 75 MG TAB PO (09:12)
[2017-05-31] MEDS: ASPIRIN 81 MG ENTERIC TAB PO (09:12)
[2017-05-31] MEDS: RAMELTEON 8 MG TAB (ROZEREM) PO (20:19)
[2017-06-01 07:24] LABS: HEMATOCRIT 34.6 % (36.0-47.0); HEMOGLOBIN 11.3 g/dl (12.0-16.0); MEAN CORPUSCULAR HEMOGLOBIN 29.6 pg (27.0-33.0); MEAN CORPUSCULAR HGB CONC 32.7 g/dl (32.0-36.5); MEAN CORPUSCULAR VOLUME 90.6 fl (80.0-96.0); PLATELET COUNT, AUTOMATED 179 10^3/uL (150-450); RED BLOOD COUNT 3.82 10^6/uL (4.00-5.40); RED CELL DISTRIBUTION WIDTH 13.1 % (11.5-14.5); WHITE BLOOD COUNT 3.7 10^3/uL (4.0-10.0)
[2017-06-01 07:50] LABS: ANION GAP 7 MEQ/L (8-16); BLOOD UREA NITROGEN 32 MG/DL (7-18); CALCIUM LEVEL 8.4 MG/DL (8.8-10.2); CARBON DIOXIDE LEVEL 26 MEQ/L (21-32); CHLORIDE LEVEL 110 MEQ/L (98-107); CREATININE FOR GFR 1.48 MG/DL (0.55-1.02); GLUCOSE, FASTING 78 MG/DL (83-110); MAGNESIUM LEVEL 2.3 MG/DL (1.8-2.4); POTASSIUM SERUM 4.1 MEQ/L (3.5-5.1); SODIUM LEVEL 143 MEQ/L (136-145)
[2017-06-01] MEDS: ASPIRIN 81 MG ENTERIC TAB PO (10:03)
[2017-06-01] MEDS: CLOPIDOGREL 75 MG TAB PO (10:03)
[2017-06-01] MEDS: QUEtiapine FUMARATE 25 MG TAB PO ×2 (10:03→20:58)
[2017-06-01] MEDS: HALOPERIDOL 0.5 MG TAB PO ×2 (10:03→20:58)
[2017-06-01] MEDS: ROSUVASTATIN 10 MG TAB (CRESTOR) PO (10:03)
[2017-06-01] MEDS: ACETAMINOPHEN TAB 650MG DOSE (2X325MG) PO (20:58)
[2017-06-01] MEDS: RAMELTEON 8 MG TAB (ROZEREM) PO (20:58)
[2017-06-02] MEDS: QUEtiapine FUMARATE 25 MG TAB PO ×3 (08:25→21:01)
[2017-06-02] MEDS: CLOPIDOGREL 75 MG TAB PO ×2 (08:25→08:31)
[2017-06-02] MEDS: ASPIRIN 81 MG ENTERIC TAB PO ×2 (08:25→08:31)
[2017-06-02] MEDS: ROSUVASTATIN 10 MG TAB (CRESTOR) PO ×2 (08:25→08:31)
[2017-06-02] MEDS: HALOPERIDOL 0.5 MG TAB PO ×3 (08:25→21:02)
[2017-06-02] MEDS: RAMELTEON 8 MG TAB (ROZEREM) PO (21:01)
[2017-06-02] MEDS: ACETAMINOPHEN TAB 650MG DOSE (2X325MG) PO (21:01)
[2017-06-03] MEDS: ASPIRIN 81 MG ENTERIC TAB PO (10:16)
[2017-06-03] MEDS: CLOPIDOGREL 75 MG TAB PO (10:16)
[2017-06-03] MEDS: HALOPERIDOL 0.5 MG TAB PO (10:16)
[2017-06-03] MEDS: QUEtiapine FUMARATE 25 MG TAB PO (10:16)
[2017-06-03] MEDS: ROSUVASTATIN 10 MG TAB (CRESTOR) PO (10:16)
== END 2017-06-03 11:58 | DRG 884 ==
LOC: M ED 22:42 → M MSPAV 05-17 16:56 → M ED INP 22:43 → M MS4PR 05-14 06:40
DX: F03.91 Unspecified dementia, unspecified severity, with behavioral disturbance (principal); R41.0 Disorientation, unspecified; I25.10 Atherosclerotic heart disease of native coronary artery without angina pectoris; E78.5 Hyperlipidemia, unspecified; K21.9 Gastro-esophageal reflux disease without esophagitis; M19.90 Unspecified osteoarthritis, unspecified site; N18.3 Chronic kidney disease, stage 3 (moderate); M25.572 Pain in left ankle and joints of left foot; F41.1 Generalized anxiety disorder; Z95.9 Presence of cardiac and vascular implant and graft, unspecified; Z85.038 Personal history of other malignant neoplasm of large intestine; Z90.2 Acquired absence of lung [part of]; Z85.118 Personal history of other malignant neoplasm of bronchus and lung; I25.2 Old myocardial infarction; Z90.49 Acquired absence of other specified parts of digestive tract; Z98.41 Cataract extraction status, right eye; Z98.42 Cataract extraction status, left eye; Z79.82 Long term (current) use of aspirin; Z79.899 Other long term (current) drug therapy; Z79.02 Long term (current) use of antithrombotics/antiplatelets

== ENCOUNTER → 2017-06-10 | Outpatient (REF) | payer MEDICARE, MEDICAID ==
[2017-06-10 09:39] LABS: HEMATOCRIT 33.9 % (36.0-47.0); HEMOGLOBIN 11.3 g/dl (12.0-16.0); MEAN CORPUSCULAR HEMOGLOBIN 30.1 pg (27.0-33.0); MEAN CORPUSCULAR HGB CONC 33.3 g/dl (32.0-36.5); MEAN CORPUSCULAR VOLUME 90.2 fl (80.0-96.0); PLATELET COUNT, AUTOMATED 177 10^3/uL (150-450); RED BLOOD COUNT 3.76 10^6/uL (4.00-5.40); RED CELL DISTRIBUTION WIDTH 13.2 % (11.5-14.5); WHITE BLOOD COUNT 4.7 10^3/uL (4.0-10.0)
[2017-06-10 10:33] LABS: ALBUMIN 3.2 GM/DL (3.2-5.2); ALBUMIN/GLOBULIN RATIO 1.07 (1.00-1.93); ALKALINE PHOSPHATASE 104 U/L (45-117); ALT/SGPT 15 U/L (12-78); ANION GAP 8 MEQ/L (8-16); AST/SGOT 19 U/L (7-37); BILIRUBIN,TOTAL 0.3 MG/DL (0.2-1.0); BLOOD UREA NITROGEN 38 MG/DL (7-18); CALCIUM LEVEL 8.9 MG/DL (8.8-10.2); CARBON DIOXIDE LEVEL 28 MEQ/L (21-32); CHLORIDE LEVEL 108 MEQ/L (98-107); CREATININE FOR GFR 1.65 MG/DL (0.55-1.02); GLOMERULAR FILTRATION RATE 31.8 (>32); GLUCOSE, FASTING 87 MG/DL (83-110); IRON (FE) 32 UG/DL (50-170); NT-PRO BNP 611 PG/ML (<450); SODIUM LEVEL 144 MEQ/L (136-145); THYROID STIMULATING HORMONE 0.841 uIU/ML (0.358-3.740); TOTAL PROTEIN 6.2 GM/DL (6.4-8.2)
== END ==
LOC: SKLAB6 07:00
DX: D64.9 Anemia, unspecified (principal); Z79.899 Other long term (current) drug therapy; R60.0 Localized edema
CPT/HCPCS: 83540

== ENCOUNTER → 2017-06-17 | Outpatient (REF) | payer MEDICARE, MEDICAID ==
[2017-06-17 10:23] LABS: ANION GAP 7 MEQ/L (8-16); BLOOD UREA NITROGEN 39 MG/DL (7-18); CALCIUM LEVEL 8.5 MG/DL (8.8-10.2); CARBON DIOXIDE LEVEL 30 MEQ/L (21-32); CHLORIDE LEVEL 104 MEQ/L (98-107); CREATININE FOR GFR 1.77 MG/DL (0.55-1.02); GLOMERULAR FILTRATION RATE 29.3 (>32); GLUCOSE, FASTING 99 MG/DL (83-110); SODIUM LEVEL 141 MEQ/L (136-145)
== END ==
LOC: SKLAB6 07:00
DX: Z00.00 Encounter for general adult medical examination without abnormal findings (principal)
CPT/HCPCS: 36415

== ENCOUNTER → 2017-09-29 | Outpatient (REF) | payer MEDICARE, MEDICAID | LOC: SKLAB6 22:20 | DX: S52.592A Other fractures of lower end of left radius, initial encounter for closed fracture (principal); W19.XXXA Unspecified fall, initial encounter | CPT/HCPCS: 73110 ==

== ENCOUNTER 2017-09-30 00:40 | Emergency (ER) | payer MEDICARE, MEDICAID | END 2017-09-30 03:17 | disposition home or self-care (01) | LOC: M ED 00:40 | DX: S52.502A Unspecified fracture of the lower end of left radius, initial encounter for closed fracture (principal); W19.XXXA Unspecified fall, initial encounter; Y92.129 Unspecified place in nursing home as the place of occurrence of the external cause; Y93.9 Activity, unspecified; Y99.9 Unspecified external cause status; F03.90 Unspecified dementia, unspecified severity, without behavioral disturbance, psychotic disturbance, mood disturbance, and anxiety; J30.2 Other seasonal allergic rhinitis; Z79.82 Long term (current) use of aspirin; Z79.899 Other long term (current) drug therapy | CPT/HCPCS: 99283 ==

== ENCOUNTER 2017-10-03 23:19 | Emergency (ER) | payer MEDICARE, MEDICAID | END 2017-10-04 00:21 | disposition home or self-care (01) | LOC: M ED 23:19 | DX: Z46.89 Encounter for fitting and adjustment of other specified devices (principal); R22.32 Localized swelling, mass and lump, left upper limb; S52.502D Unspecified fracture of the lower end of left radius, subsequent encounter for closed fracture with routine healing; X58.XXXD Exposure to other specified factors, subsequent encounter; Y92.89 Other specified places as the place of occurrence of the external cause; I25.10 Atherosclerotic heart disease of native coronary artery without angina pectoris; I25.2 Old myocardial infarction; R41.82 Altered mental status, unspecified; Z95.5 Presence of coronary angioplasty implant and graft; Z79.899 Other long term (current) drug therapy; Z79.82 Long term (current) use of aspirin | CPT/HCPCS: 99282 ==

== ENCOUNTER 2017-10-07 16:18 | Emergency (ER) | payer MEDICARE, MEDICAID | END 2017-10-07 19:23 | disposition home or self-care (01) | LOC: M ED 16:18 | DX: R22.32 Localized swelling, mass and lump, left upper limb (principal); J44.9 Chronic obstructive pulmonary disease, unspecified; N18.9 Chronic kidney disease, unspecified; E78.5 Hyperlipidemia, unspecified; F03.90 Unspecified dementia, unspecified severity, without behavioral disturbance, psychotic disturbance, mood disturbance, and anxiety; K21.9 Gastro-esophageal reflux disease without esophagitis; F41.9 Anxiety disorder, unspecified; I25.2 Old myocardial infarction; S52.502D Unspecified fracture of the lower end of left radius, subsequent encounter for closed fracture with routine healing; W18.39XD Other fall on same level, subsequent encounter; Y92.128 Other place in nursing home as the place of occurrence of the external cause; Z79.02 Long term (current) use of antithrombotics/antiplatelets; Z79.82 Long term (current) use of aspirin; Z79.899 Other long term (current) drug therapy; Z87.891 Personal history of nicotine dependence | CPT/HCPCS: 99283 ==

== ENCOUNTER → 2017-12-09 | Outpatient (POV) | payer MEDICARE, MEDICAID ==
[2017-12-09 09:43] LABS: HEMATOCRIT 35.9 % (36.0-47.0); HEMOGLOBIN 11.7 g/dl (12.0-15.5); MEAN CORPUSCULAR HEMOGLOBIN 29.9 pg (27.0-33.0); MEAN CORPUSCULAR HGB CONC 32.6 g/dl (32.0-36.5); MEAN CORPUSCULAR VOLUME 91.8 fl (80.0-96.0); PLATELET COUNT, AUTOMATED 211 10^3/uL (150-450); RED BLOOD COUNT 3.91 10^6/uL (4.00-5.40); RED CELL DISTRIBUTION WIDTH 14.6 % (11.5-14.5); WHITE BLOOD COUNT 9.3 10^3/uL (4.0-10.0)
[2017-12-09 10:11] LABS: ALBUMIN 3.2 GM/DL (3.2-5.2); ALKALINE PHOSPHATASE 106 U/L (45-117); ALT/SGPT 15 U/L (12-78); ANION GAP 9 MEQ/L (8-16); AST/SGOT 12 U/L (7-37); BILIRUBIN,TOTAL 0.3 MG/DL (0.2-1.0); BLOOD UREA NITROGEN 49 MG/DL (7-18); CALCIUM LEVEL 8.9 MG/DL (8.8-10.2); CARBON DIOXIDE LEVEL 28 MEQ/L (21-32); CHLORIDE LEVEL 105 MEQ/L (98-107); GLOMERULAR FILTRATION RATE 35.5 (>32); GLUCOSE, FASTING 151 MG/DL (70-100); IRON (FE) 27 UG/DL (50-170); SODIUM LEVEL 142 MEQ/L (136-145); TOTAL PROTEIN 7.2 GM/DL (6.4-8.2)
== END ==
LOC: SKLAB6 08:00
DX: D64.9 Anemia, unspecified (principal); I25.10 Atherosclerotic heart disease of native coronary artery without angina pectoris; N18.9 Chronic kidney disease, unspecified
CPT/HCPCS: 83540

== ENCOUNTER → 2018-06-09 | Outpatient (REF) | payer MEDICARE ==
[~2018-06-09] MED LIST changes: +ACET1TAB55 PO; +ASPI81TA21 PO; +ASPI81TAEC PO; +CALC1CHW4 PO; +CLOP75TA2 PO; +DULC10SU2 PR; +ENEMENE4 PR; +ENSULIQ64 PO; +FEVE650S3 PR; +FURO20TA2 PO; +KEFL500C17 PO; +KEPP1TAB PO; +MELA5TAB11 PO; +MILK120011 PO; +OSCA200T PO; +QUET1TAB7 PO; +QUET5TAB PO; +ROSU10TA5 PO; +ROZE8TAB16 PO; +TRAZ-160 PO; +TUMS500C PO; +VITMTA PO; +ZOLP5TAB PO
[2018-06-09 07:52] LABS: HEMATOCRIT 35.8 % (36.0-47.0); HEMOGLOBIN 11.8 g/dl (12.0-15.5); MEAN CORPUSCULAR HEMOGLOBIN 30.1 pg (27.0-33.0); MEAN CORPUSCULAR VOLUME 91.3 fl (80.0-96.0); PLATELET COUNT, AUTOMATED 185 10^3/uL (150-450); RED BLOOD COUNT 3.92 10^6/uL (4.00-5.40); WHITE BLOOD COUNT 7.7 10^3/uL (4.0-10.0)
[2018-06-09 08:24] LABS: ALBUMIN 3.3 GM/DL (3.2-5.2); BILIRUBIN,TOTAL 0.4 MG/DL (0.2-1.0); CALCIUM LEVEL 9.4 MG/DL (8.8-10.2); CREATININE FOR GFR 2.22 MG/DL (0.55-1.30); GLOMERULAR FILTRATION RATE 22.5 (>32); POTASSIUM SERUM 3.5 MEQ/L (3.5-5.1); THYROID STIMULATING HORMONE 0.904 uIU/ML (0.358-3.740); TOTAL PROTEIN 6.5 GM/DL (6.4-8.2)
== END ==
LOC: SKLAB6 07:00
PROVIDERS: ATTEND Internal Medicine
DX: E78.5 Hyperlipidemia, unspecified (principal); F03.90 Unspecified dementia, unspecified severity, without behavioral disturbance, psychotic disturbance, mood disturbance, and anxiety; J44.9 Chronic obstructive pulmonary disease, unspecified

== ENCOUNTER 2018-06-16 15:45 | Emergency (ER) | payer MEDICARE, MEDICAID ==
[~2018-06-16 15:45] MED LIST changes: -CALC1CHW4 PO; -DULC10SU2 PR; -ENEMENE4 PR; -ENSULIQ64 PO; -FEVE650S3 PR; -KEFL500C17 PO; -KEPP1TAB PO; -MELA5TAB11 PO; -VITMTA PO
--- NOTE | 2018-06-16 16:14 | REP ---
CT Head without contrast HISTORY: Head injury COMPARISON: 05/13/2017 Areas of decreased attenuation are present in the periventricular white matter. This represents small-vessel ischemic disease. There is no intraparenchymal hemorrhage, acute infarct, mass or midline shift. The ventricular system and cortical sulci are dilated consistent with mild volume loss. There is no extra cerebral collection. There is no fracture. The visualized sinuses are clear. IMPRESSION: 1. Small vessel ischemic disease. 2. Mild volume loss. Electronically Signed by Theron Johnson MD 06/16/2018 04:06 P
[2018-06-16] MEDS ORDERED: NS 500 ML IV ONE (16:15)
[2018-06-16 16:28] LABS: BASO % 0.5 % (0.0-1.0); EOS # 0.5 10^3/uL (0.0-0.50); EOS % 6.1 % (0.0-3.0); HEMOGLOBIN 12.4 g/dl (12.0-15.5); LYMPH % 27.3 % (24.0-44.0); MEAN CORPUSCULAR HEMOGLOBIN 31.1 pg (27.0-33.0); MEAN CORPUSCULAR HGB CONC 32.6 g/dl (32.0-36.5); MEAN CORPUSCULAR VOLUME 95.2 fl (80.0-96.0); MONO # 0.7 10^3/uL (0.0-0.8); MONO % 9.8 % (0.0-5.0); NEUTROPHILS # 4.2 10^3/uL (1.8-7.7); NEUTROPHILS % 55.8 % (36.0-66.0); PLATELET COUNT, AUTOMATED 228 10^3/uL (150-450); RED BLOOD COUNT 3.99 10^6/uL (4.00-5.40); WHITE BLOOD COUNT 7.5 10^3/uL (4.0-10.0)
[2018-06-16] MEDS ORDERED: ACET1TAB55 PO (16:29)
[2018-06-16] MEDS ORDERED: VITMTA PO (16:29)
[2018-06-16] MEDS ORDERED: MELA5TAB11 PO (16:29)
[2018-06-16] MEDS ORDERED: DULC10SU2 PR (16:29)
[2018-06-16] MEDS ORDERED: QUET5TAB PO (16:29)
[2018-06-16] MEDS ORDERED: ENEMENE4 PR (16:29)
[2018-06-16] MEDS ORDERED: CALC1CHW4 PO (16:29)
[2018-06-16] MEDS ORDERED: ENSULIQ64 PO (16:29)
[2018-06-16] MEDS ORDERED: QUET1TAB7 PO (16:29)
[2018-06-16] MEDS ORDERED: FEVE650S3 PR (16:29)
[2018-06-16 16:46] LABS: ALBUMIN 3.4 GM/DL (3.2-5.2); ALT/SGPT 33 U/L (12-78); BILIRUBIN,DIRECT 0.1 MG/DL (0.0-0.2); BILIRUBIN,TOTAL 0.3 MG/DL (0.2-1.0); BLOOD UREA NITROGEN 69 MG/DL (7-18); CARBON DIOXIDE LEVEL 32 MEQ/L (21-32); CHLORIDE LEVEL 105 MEQ/L (98-107); CPK CREATINE PHOSPHOKINASE 57 U/L (26-192); CREATININE FOR GFR 2.43 MG/DL (0.55-1.30); GLOMERULAR FILTRATION RATE 20.3 (>32); GLUCOSE, FASTING 97 MG/DL (70-100); MB/CK RELATIVE INDEX 1.93 (< OR =4); POTASSIUM SERUM 4.1 MEQ/L (3.5-5.1); SODIUM LEVEL 145 MEQ/L (136-145); TOTAL PROTEIN 7.2 GM/DL (6.4-8.2); TROPONIN I < 0.02 NG/ML (< 0.10)
[2018-06-16 17:08] LABS: PARTIAL THROMBOPLASTIN TIME 24.8 SECONDS (25.4-37.6); PROTHROMBIN TIME 13.3 SECONDS (12.1-14.4)
--- NOTE | 2018-06-16 17:13 | REP ---
CT cervical spine without contrast HISTORY: Fall COMPARISON: None There is no acute fracture or subluxation. Disc bulges with associated osteophyte formation are present at the C3-4 through C6-7 levels. There is minimal narrowing of the spinal canal. Uncinate process and/or facet hypertrophy are present at the C2-3 through C7-T1 levels. These findings produce minimal to moderate narrowing of the neural foramina. The C2-3 through C7-T1 intervertebral discs are decreased in height consistent with disc degeneration. IMPRESSION: 1. There is no acute fracture or subluxation. 2. There is cervical spondylosis at the C2-3 through C7-T1 levels. Electronically Signed by Theron Johnson MD 06/16/2018 05:05 P
--- NOTE | 2018-06-16 17:17 | REP ---
Chest one-view HISTORY: Infarction Comparison: 05/13/2017 A minimal increase in interstitial markings is present in the lungs consistent with chronic interstitial change. Linear density is present in the left lower lobe consistent with scar. The heart is normal in size. The pulmonary vasculature is normal in appearance. An Nhrmnp-F-Vjlk catheter is present. Impression: Chronic interstitial change. Electronically Signed by Theron Johnson MD 06/16/2018 05:09 P
--- NOTE | 2018-06-16 17:30 | REP ---
BILATERAL HIPS, AP PELVIS, FIVE VIEWS: HISTORY: Fall. RIGHT HIP: There is no acute fracture or dislocation. There is minimal narrowing of the joint space with associated osteophyte formation. IMPRESSION: Degenerative change as described above. LEFT HIP: There is no acute fracture or dislocation. There is mild narrowing of the joint space. IMPRESSION: Degenerative change as described above. Electronically Signed by Theron Johnson MD 06/16/2018 05:38 P
[2018-06-16] MEDS ORDERED: DERMABOND TOPICAL SKIN ADHESIVE TOP ONE (17:45)
--- NOTE | 2018-06-16 19:00 | ECGEPIP ---
Stationary ECG Study [facility] - ED Test Date: 2018-06-16 Pat Name: HEAVEN SHABAZZ Department: Room: - Gender: F Network Support Administrator: : 1935 Requested By: FLORENTINO Queen Order Number: [id number] Reading MD: Shay Krishnamurthy Measurements Intervals [place] Rate: 86 P: 59 SC: 132 QRS: 37 QRSD: 73 T: 46 QT: 321 QTc: 386 Interpretive Statements SINUS RHYTHM POSSIBLE LEFT ATRIAL ENLARGEMENT NSTTW ABNORMALITIES BASELINE ARTIFACT AFFECTS INTERPRETATION SIMILAR TO 05/13/17 Electronically Signed On 06-16-2018 19:00:27 EST by Shay Krishnamurthy
[2018-06-16] MEDS ORDERED: cefTRIAXone SOD 1 GM in D5W MINI-BAG PLUS 50 ML IV ONE (19:15)
[2018-06-16 19:34] VITALS: BP 111/77
[2018-06-16] MEDS ORDERED: KEPP1TAB PO (19:36)
[2018-06-16] MEDS ORDERED: KEFL500C17 PO (19:36)
[2018-06-16] MEDS ORDERED: levETIRAcetam 250MG TABLET (KEPPRA) PO ONE (20:00)
== END 2018-06-16 20:07 | disposition home or self-care (01) ==
LOC: EDBD 15:45 → M ED 15:45
DX: R55 Syncope and collapse (principal); N39.0 Urinary tract infection, site not specified; S01.81XA Laceration without foreign body of other part of head, initial encounter; X58.XXXA Exposure to other specified factors, initial encounter; Y92.9 Unspecified place or not applicable; Y93.9 Activity, unspecified; Y99.9 Unspecified external cause status; I25.10 Atherosclerotic heart disease of native coronary artery without angina pectoris; I25.2 Old myocardial infarction; Z85.038 Personal history of other malignant neoplasm of large intestine; K57.32 Diverticulitis of large intestine without perforation or abscess without bleeding; Z95.5 Presence of coronary angioplasty implant and graft; Z90.49 Acquired absence of other specified parts of digestive tract; Z87.891 Personal history of nicotine dependence; E78.5 Hyperlipidemia, unspecified; M47.812 Spondylosis without myelopathy or radiculopathy, cervical region; M47.813 Spondylosis without myelopathy or radiculopathy, cervicothoracic region; M25.751 Osteophyte, right hip; J30.2 Other seasonal allergic rhinitis; Z79.82 Long term (current) use of aspirin; Z79.899 Other long term (current) drug therapy
CPT/HCPCS: 70450; 71045; 72125; 73521; 80048; 80076; 81001; 82550; 82553; 83605; 84484; 85025; 85610; 85730; 86850; 86900; 86901; 87040; 87088; 87186; 93005; 93041; 94760; 96374; 99285; J0696

== ENCOUNTER → 2018-09-02 | Outpatient (REF) | payer MEDICARE, MEDICAID ==
[~2018-09-02] MED LIST changes: +CALC1CHW4 PO; +DULC10SU2 PR; +ENEMENE4 PR; +ENSULIQ64 PO; +FEVE650S3 PR; +KEFL500C17 PO; +KEPP1TAB PO; +MELA5TAB11 PO; +VITMTA PO
[2018-09-02 11:17] LABS: CALCIUM LEVEL 8.9 MG/DL (8.8-10.2); CREATININE FOR GFR 1.56 MG/DL (0.55-1.30); GLOMERULAR FILTRATION RATE 33.8 (>32); POTASSIUM SERUM 4.3 MEQ/L (3.5-5.1)
== END ==
LOC: SKLAB6 10:15
PROVIDERS: ATTEND Internal Medicine
DX: Z79.899 Other long term (current) drug therapy (principal)

== ENCOUNTER → 2018-12-08 | Outpatient (REF) | payer MEDICARE, MEDICAID ==
[~2018-12-08] MED LIST changes: -ROSU10TA5 PO; +ROSU10TA6 PO; -TRAZ-160 PO; +TRAZ-252 PO
[2018-12-08 07:22] LABS: HEMOGLOBIN 13.4 g/dl (12.0-15.5); MEAN CORPUSCULAR HEMOGLOBIN 30.2 pg (27.0-33.0); MEAN CORPUSCULAR HGB CONC 31.9 g/dl (32.0-36.5); MEAN CORPUSCULAR VOLUME 94.8 fl (80.0-96.0); PLATELET COUNT, AUTOMATED 165 10^3/uL (150-450); RED BLOOD COUNT 4.43 10^6/uL (4.00-5.40); WHITE BLOOD COUNT 9.2 10^3/uL (4.0-10.0)
[2018-12-08 07:40] LABS: ALBUMIN 3.5 GM/DL (3.2-5.2); BILIRUBIN,TOTAL 0.4 MG/DL (0.2-1.0); CALCIUM LEVEL 9.5 MG/DL (8.8-10.2); CREATININE FOR GFR 1.6 MG/DL (0.55-1.30); GLOMERULAR FILTRATION RATE 32.9 (>32); POTASSIUM SERUM 4.2 MEQ/L (3.5-5.1); TOTAL PROTEIN 7.3 GM/DL (6.4-8.2)
== END ==
LOC: SKLAB6 07:00
PROVIDERS: ATTEND Internal Medicine
DX: Z79.899 Other long term (current) drug therapy (principal); D64.9 Anemia, unspecified; N18.9 Chronic kidney disease, unspecified

== ENCOUNTER → 2019-03-01 | Outpatient (REF) | payer MEDICARE, MEDICAID ==
[2019-03-01 16:56] LABS: HEMATOCRIT 43.6 % (36.0-47.0); HEMOGLOBIN 14.1 g/dl (12.0-15.5); MEAN CORPUSCULAR HEMOGLOBIN 30.5 pg (27.0-33.0); MEAN CORPUSCULAR HGB CONC 32.3 g/dl (32.0-36.5); MEAN CORPUSCULAR VOLUME 94.4 fl (80.0-96.0); PLATELET COUNT, AUTOMATED 182 10^3/uL (150-450); RED BLOOD COUNT 4.62 10^6/uL (4.00-5.40)
[2019-03-01 17:13] LABS: CALCIUM LEVEL 9.7 MG/DL (8.8-10.2); CREATININE FOR GFR 1.6 MG/DL (0.55-1.30); GLOMERULAR FILTRATION RATE 32.9 (>32); POTASSIUM SERUM 3.8 MEQ/L (3.5-5.1)
== END ==
LOC: SKLAB6 15:39
PROVIDERS: ATTEND Internal Medicine
DX: R53.83 Other fatigue (principal)

== ENCOUNTER → 2019-04-09 | Outpatient (REF) | payer MEDICARE, MEDICAID ==
--- NOTE | 2019-04-09 11:21 | REP ---
Portable chest, 10:50 a.m., single AP view with the patient semi upright: The patient is rotated. Comparison is 2018. The lung simmons are clear. Cardiac size is normal. The thoracic aorta is tortuous. There is a right subclavian Ppuvnj-C-Mxlr with the tip in the right atrium, unchanged. Impression: No acute cardiopulmonary findings. The patient is rotated. Electronically Signed by Richard Glover MD 04/09/2019 11:13 A
[2019-04-09 12:05] LABS: BASO % 0.4 % (0.0-1.0); EOS # 0.3 10^3/uL (0.0-0.5); EOS % 3.1 % (0.0-3.0); HEMATOCRIT 40.5 % (36.0-47.0); HEMOGLOBIN 12.9 g/dl (12.0-15.5); LYMPH # 2.8 10^3/uL (1.5-5.0); MEAN CORPUSCULAR HEMOGLOBIN 30.8 pg (27.0-33.0); MEAN CORPUSCULAR HGB CONC 31.9 g/dl (32.0-36.5); MEAN CORPUSCULAR VOLUME 96.7 fl (80.0-96.0); MONO # 1.2 10^3/uL (0.0-0.8); MONO % 12.2 % (0.0-5.0); NEUTROPHILS # 5.1 10^3/uL (1.5-8.5); PLATELET COUNT, AUTOMATED 217 10^3/uL (150-450); RED BLOOD COUNT 4.19 10^6/uL (4.00-5.40); WHITE BLOOD COUNT 9.4 10^3/uL (4.0-10.0)
[2019-04-09 12:30] LABS: ALBUMIN 3.2 GM/DL (3.2-5.2); BILIRUBIN,TOTAL 0.3 MG/DL (0.2-1.0); CALCIUM LEVEL 9.6 MG/DL (8.8-10.2); CREATININE FOR GFR 1.55 MG/DL (0.55-1.30); GLOMERULAR FILTRATION RATE 34.1 (>32); POTASSIUM SERUM 4.5 MEQ/L (3.5-5.1); TOTAL PROTEIN 7.6 GM/DL (6.4-8.2)
== END ==
LOC: SKLAB6 10:07
PROVIDERS: ATTEND Internal Medicine
DX: R50.9 Fever, unspecified (principal); R05 Cough

== ENCOUNTER → 2019-06-08 | Outpatient (REF) | payer MEDICARE ==
[2019-06-08 08:29] LABS: HEMOGLOBIN 13.1 g/dl (12.0-15.5); MEAN CORPUSCULAR HEMOGLOBIN 30.3 pg (27.0-33.0); MEAN CORPUSCULAR HGB CONC 31.2 g/dl (32.0-36.5); PLATELET COUNT, AUTOMATED 180 10^3/uL (150-450); RED BLOOD COUNT 4.33 10^6/uL (4.00-5.40); WHITE BLOOD COUNT 5.1 10^3/uL (4.0-10.0)
[2019-06-08 08:54] LABS: ALBUMIN 3.7 GM/DL (3.2-5.2); BILIRUBIN,TOTAL 0.4 MG/DL (0.2-1.0); CALCIUM LEVEL 8.5 MG/DL (8.8-10.2); CREATININE FOR GFR 1.57 MG/DL (0.55-1.30); GLOMERULAR FILTRATION RATE 33.5 (>32); POTASSIUM SERUM 4.2 MEQ/L (3.5-5.1); THYROID STIMULATING HORMONE 1.77 uIU/ML (0.358-3.740); TOTAL PROTEIN 6.9 GM/DL (6.4-8.2)
== END ==
LOC: SKLAB6 07:00
PROVIDERS: ATTEND Internal Medicine
DX: Z79.899 Other long term (current) drug therapy (principal)

== ENCOUNTER → 2019-06-24 | Outpatient (CLI) | payer MEDICARE ==
--- NOTE | 2019-06-24 23:34 | REPVR ---
PROCEDURE INFORMATION: Exam: XR Right Knee Exam date and time: 06/24/2019 11:26 PM Age: 84 years old Clinical indication: Other: Difficulty ambulatine TECHNIQUE: Imaging protocol: XR Right knee. Views: 4 or more views. COMPARISON: No relevant prior studies available. FINDINGS: Bones/joints: Osteopenia. No fracture. No joint effusion. Soft tissues: Normal. IMPRESSION: 1. Osteopenia. 2. Otherwise negative right knee. Electronically signed by: Jordi White On 06/24/2019 23:34:14 PM
== END ==
LOC: SKLAB6 22:35
PROVIDERS: ATTEND Internal Medicine
DX: M85.861 Other specified disorders of bone density and structure, right lower leg (principal)

== ENCOUNTER → 2019-12-07 | Outpatient (REF) | payer MEDICARE ==
[2019-12-07 09:44] LABS: HEMATOCRIT 41.2 % (36.0-47.0); MEAN CORPUSCULAR HGB CONC 31.6 g/dl (32.0-36.5); MEAN CORPUSCULAR VOLUME 94.9 fl (80.0-96.0); PLATELET COUNT, AUTOMATED 218 10^3/uL (150-450); RED BLOOD COUNT 4.34 10^6/uL (4.00-5.40); WHITE BLOOD COUNT 4.8 10^3/uL (4.0-10.0)
[2019-12-07 10:04] LABS: ALBUMIN 3.4 GM/DL (3.2-5.2); BILIRUBIN,TOTAL 0.4 MG/DL (0.2-1.0); CALCIUM LEVEL 9.5 MG/DL (8.8-10.2); CREATININE FOR GFR 1.75 MG/DL (0.55-1.30); GLOMERULAR FILTRATION RATE 29.6 (>32); POTASSIUM SERUM 4.5 MEQ/L (3.5-5.1); TOTAL PROTEIN 7.1 GM/DL (6.4-8.2)
== END ==
LOC: SKLAB6 07:00
PROVIDERS: ATTEND Internal Medicine
DX: I50.9 Heart failure, unspecified (principal); H44.9 Unspecified disorder of globe; G30.9 Alzheimer's disease, unspecified; Z79.899 Other long term (current) drug therapy

== ENCOUNTER → 2020-01-11 | Outpatient (REF) | payer MEDICARE ==
[2020-04-06 12:10] LABS: CREATININE FOR GFR 1.47 MG/DL (0.55-1.30); GLOMERULAR FILTRATION RATE 36.1 (>32); POTASSIUM SERUM 4.7 MEQ/L (3.5-5.1)
== END ==
LOC: SKLAB6 08:54
DX: N18.9 Chronic kidney disease, unspecified (principal)

== ENCOUNTER → 2020-03-11 | Outpatient (REF) | payer MEDICARE ==
--- NOTE | 2020-03-11 12:37 | REPVR ---
PROCEDURE INFORMATION: Exam: XR Chest, 1 View Exam date and time: 03/11/2020 12:30 PM Age: 84 years old Clinical indication: Other: Uri TECHNIQUE: Imaging protocol: XR of the chest Views: 1 view. COMPARISON: NM PORTABLE CHEST X-RAY 04/09/2019 10:36 AM FINDINGS: Tubes, catheters and devices: Stable positioning of central venous catheter. Lungs: Emphysematous change, interstitial disease, and mild basilar airspace disease. Pleural space: No significant pleural effusion. Heart/Mediastinum: No cardiomegaly. Vasculature: Enlargement and tortuosity of the thoracic aorta. Bones/joints: Old rib fractures. Osteopenia and degenerative change. IMPRESSION: 1. Emphysematous change, interstitial disease, and mild basilar airspace disease. 2. Additional findings as described above. Electronically signed by: José Miguel Silvestre On 03/11/2020 12:37:35 PM
== END ==
LOC: SKLAB6 07:00
PROVIDERS: ATTEND Internal Medicine
DX: J84.9 Interstitial pulmonary disease, unspecified (principal); M85.9 Disorder of bone density and structure, unspecified; I77.9 Disorder of arteries and arterioles, unspecified

== ENCOUNTER → 2020-03-12 | Outpatient (REF) | payer MEDICARE ==
[2020-03-12 10:25] LABS: HEMATOCRIT 37.7 % (36.0-47.0); HEMOGLOBIN 11.8 g/dl (12.0-15.5); MEAN CORPUSCULAR HEMOGLOBIN 29.4 pg (27.0-33.0); MEAN CORPUSCULAR HGB CONC 31.3 g/dl (32.0-36.5); PLATELET COUNT, AUTOMATED 176 10^3/uL (150-450); RED BLOOD COUNT 4.01 10^6/uL (4.00-5.40); WHITE BLOOD COUNT 6.3 10^3/uL (4.0-10.0)
[2020-03-12 10:52] LABS: CALCIUM LEVEL 9.2 MG/DL (8.8-10.2); CREATININE FOR GFR 1.48 MG/DL (0.55-1.30); GLOMERULAR FILTRATION RATE 35.9 (>32); POTASSIUM SERUM 3.9 MEQ/L (3.5-5.1)
== END ==
LOC: SKLAB6 07:00
PROVIDERS: ATTEND Internal Medicine
DX: J06.9 Acute upper respiratory infection, unspecified (principal)

== ENCOUNTER → 2020-03-12 | Outpatient (REF) | payer MEDICARE | LOC: SKLAB6 13:00 | PROVIDERS: ATTEND Internal Medicine | DX: J06.9 Acute upper respiratory infection, unspecified (principal) ==

== ENCOUNTER → 2020-04-17 | Outpatient (REF) | payer MEDICARE, MEDICAID ==
[~2020-04-17] MED LIST changes: +ACET500T15 PO; +ALB2.5NEB NEB; +DIPH25CA32 PO; +ENOX40IN3 SC; +IPRA0.00 NEB; +MILKSUS22 PO; -QUET1TAB7 PO; +QUET25TA3 PO; +QUET50TA3 PO; -QUET5TAB PO; +ROBI1LIQ9 PO; +TUMS750C20 PO; +VITA-176 PO; +VITA-36 PO; +ZINC220CA PO
== END ==
LOC: SKLAB6 04-16 13:08 → EDSTATUS 05-23 09:10
DX: Z20.828 Contact with and (suspected) exposure to other viral communicable diseases (principal)

== ENCOUNTER → 2020-04-24 | Outpatient (REF) | payer MEDICARE, MEDICAID | LOC: SKLAB6 08:00 | PROVIDERS: ATTEND Internal Medicine | DX: Z20.828 Contact with and (suspected) exposure to other viral communicable diseases (principal) ==

== ENCOUNTER → 2020-05-01 | Outpatient (REF) | payer MEDICARE, MEDICAID ==
[2020-05-01 15:50] LABS: INFLUENZA A AMPLIFICATION NEGATIVE (NEGATIVE); INFLUENZA B AMPLIFICATION NEGATIVE (NEGATIVE)
== END ==
LOC: SKLAB6 08:00
PROVIDERS: ATTEND Internal Medicine
DX: Z20.828 Contact with and (suspected) exposure to other viral communicable diseases (principal)
CPT/HCPCS: 87502; U0003

== ENCOUNTER → 2020-05-08 | Outpatient (REF) | payer MEDICARE, MEDICAID ==
[~2020-05-08] MED LIST changes: -ACET500T15 PO; -ALB2.5NEB NEB; -DIPH25CA32 PO; -ENOX40IN3 SC; -IPRA0.00 NEB; -MILKSUS22 PO; +QUET1TAB7 PO; -QUET25TA3 PO; -QUET50TA3 PO; +QUET5TAB PO; -ROBI1LIQ9 PO; -TUMS750C20 PO; -VITA-176 PO; -VITA-36 PO; -ZINC220CA PO
== END ==
LOC: SKLAB6 10:00
DX: Z20.828 Contact with and (suspected) exposure to other viral communicable diseases (principal)

== ENCOUNTER → 2020-05-15 | Outpatient (REF) | payer MEDICARE, MEDICAID ==
[2020-05-15 12:52] LABS: INFLUENZA A AMPLIFICATION NEGATIVE (NEGATIVE); INFLUENZA B AMPLIFICATION NEGATIVE (NEGATIVE)
== END ==
LOC: SKLAB6 12:28
DX: Z20.828 Contact with and (suspected) exposure to other viral communicable diseases (principal)
CPT/HCPCS: 87502; U0003

== ENCOUNTER → 2020-05-22 | Outpatient (REF) | payer MEDICARE, MEDICAID | LOC: SKLAB6 09:00 | DX: Z20.828 Contact with and (suspected) exposure to other viral communicable diseases (principal) ==

== ENCOUNTER → 2020-05-29 | Outpatient (REF) | payer MEDICARE, MEDICAID | LOC: SKLAB6 10:00 | DX: Z20.828 Contact with and (suspected) exposure to other viral communicable diseases (principal) ==

== ENCOUNTER → 2020-06-05 | Outpatient (REF) | payer MEDICARE, MEDICAID | LOC: SKLAB6 10:00 | PROVIDERS: ATTEND Internal Medicine | DX: Z11.52 Encounter for screening for COVID-19 (principal) ==

== ENCOUNTER → 2020-06-12 | Outpatient (REF) | payer MEDICARE, MEDICAID | LOC: SKLAB6 10:00 | PROVIDERS: ATTEND Internal Medicine | DX: Z20.822 Contact with and (suspected) exposure to COVID-19 (principal) ==

== ENCOUNTER → 2020-06-13 | Outpatient (REF) | payer MEDICARE, MEDICAID ==
[2020-06-13 08:04] LABS: HEMATOCRIT 39.7 % (36.0-47.0); HEMOGLOBIN 12.7 g/dl (12.0-15.5); MEAN CORPUSCULAR VOLUME 93.9 fl (80.0-96.0); PLATELET COUNT, AUTOMATED 172 10^3/uL (150-450); RED BLOOD COUNT 4.23 10^6/uL (4.00-5.40); WHITE BLOOD COUNT 4.4 10^3/uL (4.0-10.0)
[2020-06-13 08:32] LABS: ALBUMIN 2.9 GM/DL (3.2-5.2); BILIRUBIN,TOTAL 0.4 MG/DL (0.2-1.0); CALCIUM LEVEL 8.5 MG/DL (8.8-10.2); CREATININE FOR GFR 1.47 MG/DL (0.55-1.30); GLOMERULAR FILTRATION RATE 36.1 (>32); POTASSIUM SERUM 4.1 MEQ/L (3.5-5.1); TOTAL PROTEIN 6.1 GM/DL (6.4-8.2)
== END ==
LOC: SKLAB6 07:00
DX: G30.9 Alzheimer's disease, unspecified (principal)

== ENCOUNTER → 2020-06-19 | Outpatient (REF) | payer MEDICARE, MEDICAID ==
[~2020-06-19] MED LIST changes: +ACET500T15 PO; +ALB2.5NEB NEB; +DIPH25CA32 PO; +ENOX40IN3 SC; +IPRA0.00 NEB; +MILKSUS22 PO; -QUET1TAB7 PO; +QUET25TA3 PO; +QUET50TA3 PO; -QUET5TAB PO; +ROBI1LIQ9 PO; +TUMS750C20 PO; +VITA-176 PO; +VITA-36 PO; +ZINC220CA PO
== END ==
LOC: SKLAB6 09:00
PROVIDERS: ATTEND Internal Medicine
DX: Z20.822 Contact with and (suspected) exposure to COVID-19 (principal)

== ENCOUNTER 2020-06-21 17:30 | Outpatient (CLI) | payer MEDICARE, MEDICAID ==
[~2020-06-21] VITALS: Ht 157.5 cm; Wt 51.6 kg
[~2020-06-21 17:30] MED LIST changes: -ACET500T15 PO; -ALB2.5NEB NEB; -DIPH25CA32 PO; -ENOX40IN3 SC; -IPRA0.00 NEB; -MILKSUS22 PO; -QUET1TAB7 PO; +QUET25TA3 PO; +QUET50TA3 PO; -QUET5TAB PO; -ROBI1LIQ9 PO; -TUMS750C20 PO; -VITA-176 PO; -VITA-36 PO; -ZINC220CA PO
[2020-06-21] MEDS ORDERED: NS 1,000 ML IV SCH (18:51)
[2020-06-21] MEDS ORDERED: EPINEPHrine INJ 1 MG/ML 1ML AMP IM PRN (19:00)
[2020-06-21] MEDS ORDERED: ALBUTEROL SULFATE 2.5 MG/0.5 ML INH NEB SOLN INH PRN (19:00)
[2020-06-21] MEDS ORDERED: ALBUTEROL 90 MCG/ACT 8GM HFA INHALER INH PRN (19:00)
[2020-06-21] MEDS ORDERED: methylPREDNISolone 125MG 2ML VIAL IV PRN (19:00)
[2020-06-21] MEDS ORDERED: methylPREDNISolone 125MG 2ML VIAL IV ONE (19:00)
[2020-06-21] MEDS ORDERED: BAMLANIVIMAB 700 MG in NS 250 ML IV ONE (19:00)
[2020-06-21] MEDS ORDERED: diphenhydrAMINE 25MG CAP PO ONE (19:00)
[2020-06-21] MEDS ORDERED: diphenhydrAMINE 50MG/ML VIAL (J1200) IV PRN (19:00)
[2020-06-21 21:00] VITALS: BP 116/64
[2020-06-21 21:35] VITALS: BP 110/62
[2020-06-21 22:10] VITALS: BP 110/37
[2020-06-21 22:15] VITALS: BP 116/66
== END 2020-06-21 23:25 | disposition home or self-care (01) ==
LOC: M OPCLI4PR 17:30 → M 4MAIN 17:35 → M OPCLI4PR 23:25
DX: U07.1 COVID-19 (principal); J84.10 Pulmonary fibrosis, unspecified
CPT/HCPCS: 36415; 71045; 80048; 85027; 85379; 85610; 86140; 96375; J2930; M0239

== ENCOUNTER → 2020-06-21 | Outpatient (REF) | payer MEDICARE, MEDICAID ==
[~2020-06-21] MED LIST changes: +QUET1TAB7 PO; -QUET25TA3 PO; -QUET50TA3 PO; +QUET5TAB PO
--- NOTE | 2020-06-21 13:13 | REP ---
INDICATION: NON PRODUCTIVE COUGH COVID POSITIVE. COMPARISON: Comparison chest x-ray March 11, 2020.. TECHNIQUE: Semi-erect AP portable chest x-ray. FINDINGS: There is a right-sided Adykbh-P-Eaiz catheter again noted in place unchanged. Bibasilar interstitial fibrosis is noted. Postthoracotomy suture line is visible in the left mid lung zone unchanged. There are minimal increased markings in the right base over the right hemidiaphragm suggesting a small focal infiltrate. There is diffuse osteoporosis. Heart is not enlarged. The aorta is tortuous. IMPRESSION: Suspected infiltrate right base overlying the right hemidiaphragm. Bibasilar fibrosis. Ewqujm-V-Pnkh catheter. <Electronically signed by Atif Christiansen > 06/21/20 [id number]
== END ==
LOC: SKLAB6 07:00
DX: U07.1 COVID-19 (principal); J84.10 Pulmonary fibrosis, unspecified

== ENCOUNTER → 2020-06-21 | Outpatient (REF) | payer MEDICARE, MEDICAID ==
[2020-06-21 12:47] LABS: HEMOGLOBIN 13.5 g/dl (12.0-15.5); MEAN CORPUSCULAR HEMOGLOBIN 30.1 pg (27.0-33.0); MEAN CORPUSCULAR HGB CONC 32.1 g/dl (32.0-36.5); MEAN CORPUSCULAR VOLUME 93.5 fl (80.0-96.0); PLATELET COUNT, AUTOMATED 240 10^3/uL (150-450); RED BLOOD COUNT 4.49 10^6/uL (4.00-5.40); WHITE BLOOD COUNT 10.2 10^3/uL (4.0-10.0)
[2020-06-21 12:58] LABS: INR 0.98; PROTHROMBIN TIME 13.2 SECONDS (12.5-14.3)
[2020-06-21 13:00] LABS: D-DIMER QUANT 2869.22 ng/ml (<500)
[2020-06-21 13:17] LABS: C REACTIVE PROTEIN QUANTITATIV 9.81 MG/DL (0.00-0.30); CALCIUM LEVEL 9.1 MG/DL (8.8-10.2); CREATININE FOR GFR 1.39 MG/DL (0.55-1.30); GLOMERULAR FILTRATION RATE 38.5 (>32); POTASSIUM SERUM 4.5 MEQ/L (3.5-5.1)
== END ==
LOC: SKLAB6 13:00
DX: U07.1 COVID-19 (principal); Z79.899 Other long term (current) drug therapy

== ENCOUNTER → 2020-06-22 | Outpatient (REF) | payer MEDICARE, MEDICAID ==
[~2020-06-22] MED LIST changes: +ACET500T15 PO; +ALB2.5NEB NEB; +DIPH25CA32 PO; +ENOX40IN3 SC; +IPRA0.00 NEB; +MILKSUS22 PO; +ROBI1LIQ9 PO; +TUMS750C20 PO; +VITA-176 PO; +VITA-36 PO; +ZINC220CA PO
== END ==
LOC: SKLAB6 09:00
DX: Z53.9 Procedure and treatment not carried out, unspecified reason (principal)

== ENCOUNTER → 2020-06-22 | Outpatient (REF) | payer MEDICARE, MEDICAID ==
[~2020-06-22] MED LIST changes: +QUET1TAB7 PO; -QUET25TA3 PO; -QUET50TA3 PO; +QUET5TAB PO
[2020-06-22 10:02] LABS: HEMATOCRIT 42.9 % (36.0-47.0); HEMOGLOBIN 13.2 g/dl (12.0-15.5); MEAN CORPUSCULAR HEMOGLOBIN 29.7 pg (27.0-33.0); MEAN CORPUSCULAR HGB CONC 30.8 g/dl (32.0-36.5); MEAN CORPUSCULAR VOLUME 96.4 fl (80.0-96.0); PLATELET COUNT, AUTOMATED 249 10^3/uL (150-450); RED BLOOD COUNT 4.45 10^6/uL (4.00-5.40); WHITE BLOOD COUNT 11.2 10^3/uL (4.0-10.0)
[2020-06-22 10:43] LABS: ALBUMIN 2.9 GM/DL (3.2-5.2); BILIRUBIN,TOTAL 0.3 MG/DL (0.2-1.0); C REACTIVE PROTEIN QUANTITATIV 9.28 MG/DL (0.00-0.30); CALCIUM LEVEL 9.5 MG/DL (8.8-10.2); CREATININE FOR GFR 1.49 MG/DL (0.55-1.30); GLOMERULAR FILTRATION RATE 35.5 (>32); POTASSIUM SERUM 4.3 MEQ/L (3.5-5.1); TOTAL PROTEIN 6.9 GM/DL (6.4-8.2)
== END ==
LOC: SKLAB6 10:00
DX: U07.1 COVID-19 (principal); Z79.899 Other long term (current) drug therapy

== ENCOUNTER → 2020-06-23 | Outpatient (REF) | payer MEDICARE, MEDICAID ==
[~2020-06-23] MED LIST changes: -QUET1TAB7 PO; +QUET25TA3 PO; +QUET50TA3 PO; -QUET5TAB PO
== END ==
LOC: SKLAB6 09:00
DX: U07.1 COVID-19 (principal)

== ENCOUNTER → 2020-06-23 | Outpatient (REF) | payer MEDICARE, MEDICAID ==
[~2020-06-23] MED LIST changes: +QUET1TAB7 PO; -QUET25TA3 PO; -QUET50TA3 PO; +QUET5TAB PO
[2020-06-23 12:13] LABS: HEMATOCRIT 44.5 % (36.0-47.0); HEMOGLOBIN 13.6 g/dl (12.0-15.5); MEAN CORPUSCULAR HGB CONC 30.6 g/dl (32.0-36.5); PLATELET COUNT, AUTOMATED 280 10^3/uL (150-450); RED BLOOD COUNT 4.54 10^6/uL (4.00-5.40); WHITE BLOOD COUNT 9.6 10^3/uL (4.0-10.0)
[2020-06-23 12:43] LABS: ALBUMIN 2.9 GM/DL (3.2-5.2); BILIRUBIN,TOTAL 0.4 MG/DL (0.2-1.0); C REACTIVE PROTEIN QUANTITATIV 6.42 MG/DL (0.00-0.30); CALCIUM LEVEL 9.5 MG/DL (8.8-10.2); CREATININE FOR GFR 1.56 MG/DL (0.55-1.30); GLOMERULAR FILTRATION RATE 33.7 (>32); POTASSIUM SERUM 4.5 MEQ/L (3.5-5.1); TOTAL PROTEIN 7.1 GM/DL (6.4-8.2)
== END ==
LOC: SKLAB6 07:00
DX: U07.1 COVID-19 (principal); Z79.899 Other long term (current) drug therapy

== ENCOUNTER → 2020-06-24 | Outpatient (REF) | payer MEDICARE, MEDICAID ==
[2020-06-24 08:45] LABS: HEMATOCRIT 42.5 % (36.0-47.0); HEMOGLOBIN 13.6 g/dl (12.0-15.5); MEAN CORPUSCULAR HEMOGLOBIN 30.2 pg (27.0-33.0); MEAN CORPUSCULAR VOLUME 94.4 fl (80.0-96.0); PLATELET COUNT, AUTOMATED 304 10^3/uL (150-450); WHITE BLOOD COUNT 7.5 10^3/uL (4.0-10.0)
[2020-06-24 09:22] LABS: ALBUMIN 2.6 GM/DL (3.2-5.2); BILIRUBIN,TOTAL 0.3 MG/DL (0.2-1.0); CALCIUM LEVEL 9.2 MG/DL (8.8-10.2); CREATININE FOR GFR 1.23 MG/DL (0.55-1.30); GLOMERULAR FILTRATION RATE 44.3 (>32); POTASSIUM SERUM 4.8 MEQ/L (3.5-5.1); TOTAL PROTEIN 6.7 GM/DL (6.4-8.2)
== END ==
LOC: SKLAB6 08:00
DX: U07.1 COVID-19 (principal); Z79.899 Other long term (current) drug therapy

== ENCOUNTER → 2020-06-25 | Outpatient (REF) | payer MEDICARE, MEDICAID ==
[2020-06-25 09:19] LABS: HEMATOCRIT 41.6 % (36.0-47.0); HEMOGLOBIN 13.2 g/dl (12.0-15.5); MEAN CORPUSCULAR HEMOGLOBIN 29.8 pg (27.0-33.0); MEAN CORPUSCULAR HGB CONC 31.7 g/dl (32.0-36.5); MEAN CORPUSCULAR VOLUME 93.9 fl (80.0-96.0); PLATELET COUNT, AUTOMATED 303 10^3/uL (150-450); RED BLOOD COUNT 4.43 10^6/uL (4.00-5.40); WHITE BLOOD COUNT 8.4 10^3/uL (4.0-10.0)
[2020-06-25 09:51] LABS: ALBUMIN 2.6 GM/DL (3.2-5.2); BILIRUBIN,TOTAL 0.3 MG/DL (0.2-1.0); CALCIUM LEVEL 9.1 MG/DL (8.8-10.2); CREATININE FOR GFR 1.61 MG/DL (0.55-1.30); GLOMERULAR FILTRATION RATE 32.5 (>32); POTASSIUM SERUM 4.7 MEQ/L (3.5-5.1); TOTAL PROTEIN 6.2 GM/DL (6.4-8.2)
== END ==
LOC: SKLAB6 08:00
DX: E86.0 Dehydration (principal)

== ENCOUNTER 2020-06-27 17:23 | Inpatient (IN) | payer MEDICARE, MEDICAID ==
[~2020-06-27] VITALS: Ht 152.4 cm; Wt 49.5 kg
[~2020-06-27 17:23] MED LIST changes: -ACET500T15 PO; -ALB2.5NEB NEB; -DIPH25CA32 PO; -ENOX40IN3 SC; -IPRA0.00 NEB; -MILKSUS22 PO; -ROBI1LIQ9 PO; -TUMS750C20 PO; -VITA-176 PO; -VITA-36 PO; -ZINC220CA PO
[2020-06-27] MEDS ORDERED: ZINC220CA PO (17:40)
[2020-06-27] MEDS ORDERED: ALB2.5NEB NEB (17:40)
[2020-06-27] MEDS ORDERED: VITA-176 PO (17:40)
[2020-06-27] MEDS ORDERED: TUMS750C20 PO (17:40)
[2020-06-27] MEDS ORDERED: IPRA0.00 NEB (17:40)
[2020-06-27] MEDS ORDERED: ACET500T15 PO (17:40)
[2020-06-27] MEDS ORDERED: MILKSUS22 PO (17:40)
[2020-06-27] MEDS ORDERED: DIPH25CA32 PO (17:40)
[2020-06-27] MEDS ORDERED: ENOX40IN3 SC (17:40)
[2020-06-27] MEDS ORDERED: VITA-36 PO (17:40)
[2020-06-27] MEDS ORDERED: ROBI1LIQ9 PO (17:40)
--- NOTE | 2020-06-27 19:17 | REP ---
INDICATION: Coronavirus workup. COMPARISON: 06/21/2020 the latest prior also portable TECHNIQUE: Portable FINDINGS: The technique utilized in obtaining the radiograph has magnified the cardiac silhouette and accentuated the interstitial markings. The cardiomediastinal silhouette is stable. The tip of the Cqgxfh-V-Fdxu catheter remains in the superior vena cava/right atrial junction. The heart is not enlarged. There is thoracic aortic tortuosity status quo. Bibasilar fibrotic changes are again seen in the lung bases which appear stable. Scattered fibrotic changes are also seen throughout the remainder of the lung simmons also unchanged. No acute patchy parenchymal opacities or pleural effusions have developed. There is no change in the osseous structures. IMPRESSION: Stable appearing chronic changes <Electronically signed by Alfredito Don > 06/27/201913
--- OUTSIDE RECORDS SUMMARY | 2020-06-27 19:33 | CCD ---
Author Author [facility] Organization [facility] Address Unknown Phone Unavailable Support Name Relationship Address Phone CHANDRIKA (HCP) YAYA Next Of Kin [address] [place] [address] [place] Next Of Kin Unknown Unavailable RE Next Of Kin Unknown Unavailable VESOSEI MoeA Next Of Kin [address] [place] [address] ROCIO CLARK Next Of Kin [address] [place] [address] ROCIO CLARK Next Of Kin [address] [place] [address] Re-disclosure Warning The records that you are about to access may contain information from federally-assisted alcohol or drug abuse programs. If such information is present, then the following federally mandated warning applies: This information has been disclosed to you from records protected by federal confidentiality rules (42 CFR part 2). The federal rules prohibit you from making any further disclosure of this information unless further disclosure is expressly permitted by the written consent of the person to whom it pertains or as otherwise permitted by 42 CFR part 2. A general authorization for the release of medical or other information is NOT sufficient for this purpose. The Federal rules restrict any use of the information to criminally investigate or prosecute any alcohol or drug abuse patient.The records that you are about to access may contain highly sensitive health information, the redisclosure of which is protected by Article 27-F of the [place] State Public Health law. If you continue you may have access to information: Regarding HIV / AIDS; Provided by facilities licensed or operated by the [facility] Office of Mental Health; or Provided by the [facility] Office for People With Developmental Disabilities. If such information is present, then the following [facility] mandated warning applies: This information has been disclosed to you from confidential records which are protected by state law. State law prohibits you from making any further disclosure of this information without the specific written consent of the person to whom it pertains, or as otherwise permitted by law. Any unauthorized further disclosure in violation of state law may result in a fine or assisted sentence or both. A general authorization for the release of medical or other information is NOT sufficient authorization for further disc losure. Family History Family Member Name Family Member Gender Family Member Status Date o f Status Description Data Source(s) Unknown Male Problem [facility] ([facility]) Insurance Providers Payer name Policy type / Coverage type Policy ID Covered republican ID Covered republican's relationship to rivas Policy Rivas Plan Information EMEDNY [id number] [id number] [id number] SP [id number] MEDICARE [id number] SP [id number] MEDICAID [id number] SP [id number] [facility] [id number] SP [id number] [facility] [id number] SP [id number] MEDICARE COMPLETE-C O [id number] S [id number] MEDICAID M [id number] S [id number] [place] B [id number] Self [id number] [place] [id number] Self [id number] [facility] Commercial [id number] Self [id number] [place] B [id number] Self [id number] [place] [id number] Self [id number] [place]ig[place] Part B [id number] Self [id number] [place] [id number] Self [id number] [place] Primary [id number] Self [id number] [place] Primary [id number] Self [id number] [place] Primary [id number] Self [id number] MEDICARE C [id number] S [id number] [facility] OPTIONS C [id number] S [id number] [place] Primary [id number] Self [id number] S [employer] C [id number] S [id number] MEDICAID -O/P [id number] MEDICARE PART A-O/P [id number] 18 [id number] MEDICAID -RECURRING [id number] MEDICARE -RECURRING [id number] 18 [id number] MEDICAID -CLINIC [id number] MEDICARE PART A-CLINIC [id number] 18 [id number] MEDICAID UNAVAILABLE UNAVAILA BLE MEDICARE -O/P [id number] 18 [id number] MEDICARE -I/P [id number] 18 [id number] MEDICARE -O/P [id number] 18 [id number] Results ID Date Data Source [id number] 06/19/2020 07:00:00 AM EST [facility] Name Value Range Interpretation Code Description Data Elaine rce(s) Supporting Document(s) SARS coronavirus 2 RNA Detected [facility] This lab was ordered by [facility] and reported by [facility]. ID Date Data Source [id number] 06/12/2020 09:00:00 AM EST [facility] Name Value Range Interpretation Code Description Data Elaine rce(s) Supporting Document(s) SARS coronavirus 2 RNA Not Detected [facility] This lab was ordered by [facility] and reported by [facility]. ID Date Data Source [id number] 06/05/2020 10:00:00 AM EST [facility] Name Value Range Interpretation Code Description Data Elaine rce(s) Supporting Document(s) SARS coronavirus 2 RNA Not Detected [facility] [place] This lab was ordered by [facility] and reported by [facility]. ID Date Data Source [id number] 05/29/2020 08:26:00 AM EST [facility] Name Value Range Interpretation Code Description Data Elaine rce(s) Supporting Document(s) SARS coronavirus 2 RNA [facility] This lab was ordered by [facility] and reported by [facility]. ID Date Data Source [id number] 05/22/2020 11:00:00 AM EST [facility] Name Value Range Interpretation Code Description Data Elaine rce(s) Supporting Document(s) SARS coronavirus 2 RNA [facility] This lab was ordered by [facility] and reported by [facility]. ID Date Data Source [id number] 05/15/2020 08:40:00 AM EST [facility] Name Value Range Interpretation Code Description Data Elaine rce(s) Supporting Document(s) SARS coronavirus 2 RNA [facility] This lab was ordered by [facility] and reported by [facility]. ID Date Data Source [id number] 05/08/2020 10:00:00 AM EST [facility] Name Value Range Interpretation Code Description Data Elaine rce(s) Supporting Document(s) SARS coronavirus 2 RNA [facility] This lab was ordered by [facility] and reported by [facility]. ID Date Data Source [id number] 05/01/2020 10:29:00 AM EST [facility] Name Value Range Interpretation Code Description Data Elaine rce(s) Supporting Document(s) SARS coronavirus 2 RNA [facility] This lab was ordered by [facility] and reported by [facility]. ID Date Data Source [id number] 04/24/2020 09:00:00 AM EST [facility] Name Value Range Interpretation Code Description Data Elaine rce(s) Supporting Document(s) SARS coronavirus 2 RNA [facility] This lab was ordered by [facility] and reported by [facility]. ID Date Data Source [id number] 2020 10:45:00 AM EST [facility] Name Value Range Interpretation Code Description Data Elaine rce(s) Supporting Document(s) SARS coronavirus 2 RNA [facility] This lab was ordered by [facility] and reported by [facility]. ID Date Data Source [id number] 04/11/2020 12:15:00 PM EST [facility] Name Value Range Interpretation Code Description Data Elaine rce(s) Supporting Document(s) SARS coronavirus 2 RNA [facility] This lab was ordered by [facility] and reported by [facility]. Procedure
[2020-06-27] MEDS ORDERED: NS 1,000 ML IV ONE (19:45)
[2020-06-27 20:21] LABS: BASO # 0.1 10^3/uL (0.0-0.2); EOS # 0.2 10^3/uL (0.0-0.5); EOS % 2.5 % (0.0-3.0); HEMATOCRIT 44.1 % (36.0-47.0); HEMOGLOBIN 13.8 g/dl (12.0-15.5); LYMPH # 1.1 10^3/uL (1.5-5.0); LYMPH % 13.6 % (24.0-44.0); MEAN CORPUSCULAR HEMOGLOBIN 30.3 pg (27.0-33.0); MEAN CORPUSCULAR HGB CONC 31.3 g/dl (32.0-36.5); MEAN CORPUSCULAR VOLUME 96.9 fl (80.0-96.0); MONO # 0.8 10^3/uL (0.0-0.8); MONO % 9.5 % (0.0-5.0); NEUTROPHILS # 5.7 10^3/uL (1.5-8.5); NEUTROPHILS % 69.6 % (36.0-66.0); PLATELET COUNT, AUTOMATED 253 10^3/uL (150-450); RED BLOOD COUNT 4.55 10^6/uL (4.00-5.40); WHITE BLOOD COUNT 8.2 10^3/uL (4.0-10.0)
[2020-06-27 20:39] LABS: D-DIMER QUANT 2815.09 ng/ml (<500)
--- NOTE | 2020-06-27 21:01 | ECGEPIP ---
[facility] - ED Test Date: 2020-06-27 Pat Name: HEAVEN SHABAZZ Department: Room: - Gender: Female National Sales Consultant: everardo : 1935 Requested By: Shay Cormier Order Number: [id number] Reading MD: Shay Krishnamurthy Measurements Intervals [place] Rate: 77 P: 49 AK: 115 QRS: 59 QRSD: 64 T: 89 QT: 356 QTc: 403 Interpretive Statements SINUS RHYTHM WITH SHORT AK INTERVAL NSTTW ABNORMALITY(S) SIMILAR TO 06/16/18 Electronically Signed on 06-27-2020 21:01:02 EST by Shay Krishnamurthy
[2020-06-27 21:18] LABS: ALBUMIN 2.5 GM/DL (3.2-5.2); ALT/SGPT 26 U/L (12-78); BILIRUBIN,TOTAL 0.4 MG/DL (0.2-1.0); BLOOD UREA NITROGEN 58 MG/DL (7-18); CALCIUM LEVEL 8.6 MG/DL (8.8-10.2); CARBON DIOXIDE LEVEL 25 MEQ/L (21-32); CHLORIDE LEVEL 111 MEQ/L (98-107); CK-MB VALUE MASS 1.5 NG/ML (<3.6); CPK CREATINE PHOSPHOKINASE 22 U/L (26-192); FERRITIN 116 NG/ML (8-252); GLOMERULAR FILTRATION RATE 45.6 (>32); GLUCOSE, FASTING 89 MG/DL (70-100); LDH LACTATE DEHYDROGENASE 252 U/L (84-246); MB/CK RELATIVE INDEX 6.82 (< OR =4); POTASSIUM SERUM 4.6 MEQ/L (3.5-5.1); SODIUM LEVEL 144 MEQ/L (136-145); TOTAL PROTEIN 6.2 GM/DL (6.4-8.2); TROPONIN I < 0.02 NG/ML (< 0.10)
[2020-06-27] MEDS ORDERED: ISOVUE-370 76% 100ML VIAL As Ordered ONE (21:34)
--- NOTE | 2020-06-27 22:43 | REPVR ---
PROCEDURE INFORMATION: Exam: CT Angiography Chest With Contrast Exam date and time: 06/27/2020 9:58 PM Age: 85 years old Clinical indication: Abnormal findings; Abnormal diagnostic tests; Elevated d-dimer; Additional info: AMS, ddimer TECHNIQUE: Imaging protocol: Computed tomographic angiography of the chest with intravenous contrast. 3D rendering (Not supervised by radiologist): MIP and/or 3D reconstructed images were created by the technologist. Radiation optimization: All CT scans at this facility use at least one of these dose optimization techniques: automated exposure control; mA and/or kV adjustment per patient size (includes targeted exams where dose is matched to clinical indication); or iterative reconstruction. Contrast material: ISOVUE 370; Contrast volume: 75 ml; Contrast route: INTRAVENOUS (IV); COMPARISON: CT Chest with contrast 09/13/2013 10:58 AM FINDINGS: Tubes, catheters and devices: MediPort catheter extends in the SVC. Pulmonary arteries: No pulmonary emboli. 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 No aortic dissection. Moderate amount of soft plaque in the descending thoracic aorta. Thyroid: 1.9 cm nodule in the left lobe of the thyroid gland. Lungs: Mild centrilobular emphysematous changes. Multifocal patchy airspace opacities with interstitial thickening in both lungs. Mild bronchial wall thickening in the lung bases. Pleural spaces: Unremarkable. No pneumothorax. No pleural effusion. Heart: Normal heart size. Mild coronary artery atherosclerotic disease. Lymph nodes: Unremarkable. No enlarged lymph nodes. Bones/joints: Skeletal degenerative changes are noted. Soft tissues: Unremarkable. IMPRESSION: 1. 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 2. Multifocal pneumonia. 3. Emphysema. COMMENTS: Consistent with the [place] [employer]'s Incidental Findings Committee white paper (J Am Oli Radiol 2015): In patients aged 35 years and older with an incidental thyroid nodule equal to or greater than 1.[address], MRI or extrathyroidal US, further evaluation with dedicated thyroid US is recommended for patients with normal life expectancy and without comorbidities. For smaller nodules without suspicious features, no further evaluation or follow up is recommended. Electronically signed by: Kushal Neal On 06/27/2020 22:42:54 PM
--- NOTE | 2020-06-27 22:57 | REPVR ---
PROCEDURE INFORMATION: Exam: CT Head Without Contrast Exam date and time: 06/27/2020 9:58 PM Age: 85 years old Clinical indication: Altered mental status/memory loss; Confusion or disorientation; Additional info: AMS TECHNIQUE: Imaging protocol: Computed tomography of the head without contrast. Radiation optimization: All CT scans at this facility use at least one of these dose optimization techniques: automated exposure control; mA and/or kV adjustment per patient size (includes targeted exams where dose is matched to clinical indication); or iterative reconstruction. COMPARISON: CT Head without contrast 06/16/2018 3:51 PM FINDINGS: Limitations: Patient motion. Brain: There is no acute cortical infarction, intracranial hemorrhage or mass.There is mild diffuse heterogeneity of the white matter, most consistent with microangiopathy. Cerebral ventricles: The ventricles appear enlarged, but not out of proportion to the degree of parenchymal volume loss. Bones/joints: Unremarkable. No acute fracture. Paranasal sinuses: There is fluid in a right sphenoid air cell.The remainder of the paranasal sinuses appear clear. Mastoid air cells: Visualized mastoid air cells are well aerated. Vasculature: Atherosclerosis. Soft tissues: Unremarkable. IMPRESSION: No acute intracranial findings. Findings are stable in comparison to the 06/16/2018 CT although there is now fluid in a right sphenoid air cell which was not present on the prior study. Electronically signed by: Tere Scruggs On 06/27/2020 22:56:40 PM
[2020-06-27] MEDS ORDERED: cefTRIAXone SOD 1 GM in D5W MINI-BAG PLUS 50 ML IV ONE (23:45)
[2020-06-28] VITALS (9 sets, daily range): BP systolic 115–136; BP diastolic 56–79; O2SAT 94–98
[2020-06-28] MEDS ORDERED: MOM 30ML SUSPENSION UDC PO PRN (00:30)
[2020-06-28] MEDS ORDERED: MAALOX 30 ML SUSP *UDC PO PRN (00:30)
[2020-06-28] MEDS ORDERED: ACETAMINOPHEN TAB 650MG DOSE (2X325MG) PO PRN (00:30)
[2020-06-28] MEDS ORDERED: VANCOMYCIN HCL 760 MG in IV FLUID PLACE HOLDER 1 EA IV SCH (00:30)
[2020-06-28 00:39] LABS: INR 1.06
[2020-06-28 01:00] LABS: ERYTHROCYTE SEDIMENTATION RATE 59 mm/hr (0-30)
--- OUTSIDE RECORDS SUMMARY | 2020-06-28 01:18 | CCD ---
Author Author [facility] Organization [facility] Address Unknown Phone Unavailable Support Name Relationship Address Phone CHANDRIKA (HCP) YAYA Next Of Kin [id number] [place] [address] [place] Next Of Kin Unknown Unavailable RE Next Of Kin Unknown Unavailable VESOSEI MoeA Next Of Kin [id number] [place] [address] ROCIO CLARK Next Of Kin [address] [place] [address] ROCIO CLARK Next Of Kin [address] [place] [address] Re-disclosure Warning The records that you are [...] is protected by Article 27-F of the [place] State Public Health law. If you continue you may have access to information: Regarding HIV / AIDS; Provided by facilities licensed or operated by the [facility] Office of Mental Health; or Provided by the [facility] Office for People With Developmental Disabilities. If such information is present, then the following [facility] mandated warning applies: This information has been [...] law may result in a fine or usp sentence or both. A general authorization for the release of medical or other information is NOT sufficient authorization for further disc losure. Family History Family Member Name Family Member Gender Family Member Status Date o f Status Description Data Source(s) Unknown Male Problem [facility] ([facility]) Insurance Providers Payer name Policy type / Coverage type Policy ID Covered democrat ID Covered democrat's relationship to rivas Policy Rivas Plan Information EMEDNY [id number] [id number] [facility] [id number] SP [id number] MEDICARE [id number] SP [id number] MEDICAID [id number] SP [id number] [facility] [id number] SP [id number] [facility] [id number] SP [id number] MEDICARE COMPLETE-C O [id number] S [id number] MEDICAID M [id number] S [id number] [place] [id number] Self [id number] [place] [id number] Self [id number] [facility] ([facility]) Commercial [id number] Self [id number] [place] B [id number] Self [id number] [place] [id number] Self [id number] [place] B [id number] Self [id number] [place]ig[place] [id number] Self [id number] [place] Medicare Primary [id number] Self [id number] [place] Primary [id number] Self [id number] [place] Primary [id number] Self [id number] MEDICARE C [id number] S [id number] [facility] OPTIONS C [id number] S [id number] [place] Primary [id number] Self [id number] S [employer], [facility] C [id number] S [id number] MEDICAID -O/P [id number] MEDICARE PART A-O/P [id number] 18 [id number] MEDICAID -RECURRING [id number] MEDICARE -RECURRING [id number] 18 [id number] MEDICAID -CLINIC [id number] MEDICARE PART A-CLINIC [id number] 18 [id number] MEDICAID UNAVAILABLE UNAVAILA BLE MEDICARE -O/P [id number] 18 [id number] MEDICARE -I/P [id number] 18 [id number] MEDICARE -O/P [id number] 18 [id number] Results ID Date Data Source [id number] 06/19/2020 07:00:00 AM EST [facility] Name Value Range Interpretation Code Description Data Elaine rce(s) Supporting Document(s) SARS coronavirus 2 RNA Detected [facility] This lab was ordered by [facility] and reported by [facility]. ID Date Data Source [id number] 06/12/2020 09:00:00 AM EST [facility] Name Value Range Interpretation Code Description Data Elaine rce(s) Supporting Document(s) SARS coronavirus 2 RNA Not Detected [facility] This lab was ordered by [facility] and reported by [facility]. ID Date Data Source [id number] 06/05/2020 10:00:00 AM EST [facility] Name Value Range Interpretation Code Description Data Elaine rce(s) Supporting Document(s) SARS coronavirus 2 RNA Not Detected [facility] This lab was ordered by [facility] and reported by [facility]. ID Date Data Source [id number] 05/29/2020 08:26:00 AM EST [facility] Name Value Range Interpretation Code Description Data Elaine rce(s) Supporting Document(s) SARS coronavirus 2 RNA [facility] This lab was ordered by [facility] and reported by [facility]. ID Date Data Source [id number] 05/22/2020 11:00:00 AM EST [facility] Name Value Range Interpretation Code Description Data Elaine rce(s) Supporting Document(s) SARS coronavirus 2 RNA [facility] This lab was ordered by [facility] and reported by [facility]. ID Date Data Source [id number] 05/15/2020 08:40:00 AM EST [facility] Name Value Range Interpretation Code Description Data Elaine rce(s) Supporting Document(s) SARS coronavirus 2 RNA [facility] This lab was ordered by [facility] and reported by [facility]. ID Date Data Source [id number] 05/08/2020 10:00:00 AM EST [facility] Name Value Range Interpretation Code Description Data Elaine rce(s) Supporting Document(s) SARS coronavirus 2 RNA [facility] This lab was ordered by [facility] and reported by [facility]. ID Date Data Source [id number] 05/01/2020 10:29:00 AM EST [facility] Name Value Range Interpretation Code Description Data Elaine rce(s) Supporting Document(s) SARS coronavirus 2 RNA [facility] This lab was ordered by [facility] and reported by [facility]. ID Date Data Source [id number] 04/24/2020 09:00:00 AM EST [facility] Name Value Range Interpretation Code Description Data Elaine rce(s) Supporting Document(s) SARS coronavirus 2 RNA [facility] This lab was ordered by [facility] and reported by [facility]. ID Date Data Source [id number] 2020 10:45:00 AM EST [facility] Name Value Range Interpretation Code Description Data Elaine rce(s) Supporting Document(s) SARS coronavirus 2 RNA [facility] This lab was ordered by [facility] and reported by [facility]. ID Date Data Source [id number] 04/11/2020 12:15:00 PM EST [facility] Name Value Range Interpretation Code Description Data Elaine rce(s) Supporting Document(s) SARS coronavirus 2 RNA [facility] This lab was ordered by [facility] and reported by [facility]. Procedure
--- NOTE | 2020-06-28 01:45 | HPEPDOC ---
[facility] Medical History & Physical Date of Admission Jun 28, 2020 Date of Service: Jun 28, 2020 Primary Care Physician: Christi Dong DO Attending Physician: MILLY PRADO MD History and Physical TIME OF SERVICE: 1230am CHIEF COMPLAINT: sent from [place] HISTORY OF PRESENT ILLNESS: The patient was unable to provide any history, the majority of the information was obtained via chart review. This 85 yr old F was diagnosed w COVID 19 on Jun 19 despite receiving her first dose of her vaccine in early May and mono-colonal antibodies on Jun 21; her second dose of the vaccine was due on Jun 25 but held bc she had COVID. Yesterday evening she was sent from her NH for evaluation staff noticed that she was lethargic. REVIEW OF SYSTEMS: unobtainable because the patient is confused PAST MEDICAL/ SURGICAL HISTORY: Dementia CAD COPD Colon cancer with mets to the lungs / hx of partial colectomy GERD OA Cataract surgery Right breast lumpectomy SOCIAL HISTORY: Former smoker 50 pack year habit FAMILY HISTORY: unobtainable ALLERGIES: Please see below. HOME MEDICATIONS: Please see below. PHYSICAL EXAMINATION: Vital Signs Date Time Temp Pulse Resp B/P (MAP) Pulse Ox O2 Delivery O2 Flow Rate FiO2 06/27/20 18:04 97.8 79 17 146/70 96 Room Air GENERAL APPEARANCE: well nourished /well developed/ NAD HEENT: EOMI CARDIOVASCULAR: RRR/NMRG /radial pulse intact/ no BLE edema LUNGS: breath sound diminished ABDOMEN: soft /she doesnt grimace with palpation MUSCULOSKELETAL: slim extremities NEUROLOGICAL: not speaking PSYCHIATRIC: alert LABORATORY DATA: 06/27/20 19:47 IMAGING: Chest xray IMPRESSION: Stable appearing chronic changes CT head IMPRESSION: No acute intracranial findings. Findings are stable in comparison to the 06/16/2018 CT although there is now fluid in a right sphenoid air cell which was not present on the prior study. CTA chest IMPRESSION: 1. 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 2. Multifocal pneumonia. 3. Emphysema. MICROBIOLOGY: COVID 19 + Jun 19 06/27/20 Urine Culture, Received Pending 06/27/20 Blood Culture, Received Pending 06/27/20 Blood Culture, Received Pending ASSESSMENT: Ms. Mills is an 85 yr old w Dementia, CAD, COPD & hx of colon CA who was transferred from her NH for evaluation of encephalopathy. PLAN: 1.Encephalopathy likely 2/2 COVID PNA DNR/DNI Plan: admit to PCU / frequent neurochecks / check VBG / continuous pulse ox / supplemental O2 up to 3L with target O2 sats between 92-95% as needed / contact & air borne precautions / f/u repeat plts (if low indicates bad prognosis), CRP (if high indicates bad prognosis), INR, BMP, fibrinogen, INR, D-dimer, PT, PTT (if patient has DIC indicates bad prognosis), ferritin, LDH, procalcitoni, troponins ( if elevated may need Echo to r/o viral cardiomyopathy) / will start IV Ceftriaxone, Doxycycline and Vancomycin pending sputum cx, strep pneumo, legionella & mycoplasma, MRSA / per 2019 IDSA/ATS guidelines for CAP will not check procalcitonin to distinguish between viral and bacterial causes of PNA / she is currently not hypoxemic therefore she is not a candidate for steroids /bc she was diagnosed several days ago, she is not a candidate for Remdesivir 2. COPD She is not tachycardic or hypoxemic therefore doesnt appear to be in an exacerbation Plan: Albuterol & Ipratropium/Albuterol DVT Px w Lovenox and ASA Dispo: back to NH after more than 2 midnights stay / PFS consult has been placed Home Medications Scheduled Acetaminophen (Acetaminophen) 500 Mg Tablet, 500 MG PO TID Ascorbic Acid (Vitamin C with Alisa Hips) 1,000 Mg Tablet, 1,000 MG PO QID Calcium Carbonate (Tums X-Str) 300 Mg Tab.chew, 750 MG PO BID Cholecalciferol (Vitamin D3) (Vitamin D3) 25 Mcg Tab.chew, 2,000 UNITS PO QHS Enoxaparin Sodium (Enoxaparin Sodium) 40 Mg/0.4 Ml Syringe, 40 MG SC QPM Guaifenesin/Dextromethorphan (Robitussin Cough-Chest Dm Liq) 237 Ml Liquid, 10 ML PO QID Ipratropium/Albuterol Sulfate (Iprat-Albut 0.5-3(2.5) mg/3 ml) 3 Ml Ampul.neb, 1 VIAL NEB TID Zinc Sulfate (Zinc Sulfate) 220 Mg Capsule, 220 MG PO BID Scheduled PRN Acetaminophen (Feverall) 650 Mg Sup, 650 MG [place] Q4H PRN for PAIN / FEVER Acetaminophen (Acetaminophen) 325 Mg Tab, 650 MG PO Q4H PRN for PAIN Albuterol Sulfate (Albuterol Sulfate) 2.5 Mg/0.5 Ml Vial.neb, 1 VIAL NEB Q2H PRN for SOB/COUGH Bisacodyl (Dulcolax) 10 Mg Sup, 10 MG OR DAILY PRN for CONSTIPATION Diphenhydramine HCl (Diphenhydramine HCl) 25 Mg Capsule, 25 MG PO ONCE PRN for ALLERGIC REACTION Magnesium Hydroxide (Milk of Magnesia) 400 Mg/5 Ml Oral.susp, 2,400 MG PO DAILY PRN for CONSTIPATION Sodium Phosphate,Centre-Dibasic (Enema Ovkfo-Aj-Cyu) 1 Perez Perez, 1 PEREZ [place] DAILY PRN for CONSTIPATION Allergies Coded Allergies: SEASONAL ALLERGIES (Verified Allergy, Unknown, 04/15/07) A-FIB/CHADSVASC A-FIB History Current/History of A-Fib/PAF?: No Current PO Anticoag Therapy: No MILLY PRADO MD Jun 28, 2020 01:45
[2020-06-28] MEDS ORDERED: cefTRIAXone SOD 1 GM in D5W MINI-BAG PLUS 50 ML IV SCH (03:00)
[2020-06-28] MEDS ORDERED: VANCOMYCIN HCL 1,000 MG, VIAL MATE ADAPTER 1 EACH in D5W 250 ML IV ONE (05:00)
[2020-06-28] MEDS ORDERED: ALBUTEROL 90 MCG/ACT 8GM HFA INHALER INH PRN (07:00)
[2020-06-28 07:17] LABS: VENOUS BASE EXCESS -2.7 (-2.0-2.0); VENOUS HCO3 21.1 MEQ/L (23.0-27.0); VENOUS O2 SATURATION 98.4 % (60.0-80.0); VENOUS PARTIAL PRESSURE CO2 33.6 mmHg (38.0-50.0); VENOUS PARTIAL PRESSURE O2 110.4 mmHg (30.0-50.0); VENOUS PH 7.415 UNITS (7.330-7.430); VENOUS STANDARD HCO3 22.2 MEQ/L; VENOUS TOTAL CO2 22.1 MEQ/L (24.0-28.0)
[2020-06-28 07:55] LABS: INR 0.98; PROTHROMBIN TIME 13.2 SECONDS (12.5-14.3)
[2020-06-28 07:56] LABS: PARTIAL THROMBOPLASTIN TIME 28.8 SECONDS (24.2-38.5)
[2020-06-28] MEDS: COMBIVENT RESPIMAT 100-20MCG INHALER 4GM INH SCH ×2 (08:03→19:32)
[2020-06-28] MEDS ORDERED: DOXYCYCLINE HYCLATE 100 MG in D5W MINI-BAG PLUS 100 ML IV SCH (09:00)
[2020-06-28] MEDS: ASPIRIN 81 MG ENTERIC TAB PO SCH (09:08)
[2020-06-28] MEDS: ENOXAPARIN 30MG/0.3ML SYRINGE (J1650 PER 10MG) SC SCH (09:08)
--- NOTE | 2020-06-28 15:22 | IPNPDOC ---
Text Note Date of Service The patient was seen on 06/28/20. NOTE Subjective: Patient is a resident of [facility] and tested positive for coated on 06/21/2020. She received the vaccine in early May as well as a monoclonal antibody infusion around the time of diagnosis. He is brought into the emergency department for "lethargy and altered mental status with decreased responsiveness" and found to have multifocal pneumonia as well as a positive UTI and was subsequently admitted for treatment of same.. It is unclear what her mental baseline is as she has in her record a history of advanced dementia. Today she is arousable and somewhat interactive but does not answer any questions or say anything intelligible. Objective: Vitals: (See below) General: Cachectic appearing female weighing comfortably in bed in no acute distress. She is arousable on speaking with her and mildly interactive. HEENT: NC, AT. EOMI, no scleral icterus. No pharyngeal erythema, mucous membranes moist. Neck: No lymphadenopathy or JVD CV: RRR, Normal S1 and S2. No murmurs, gallops, or rubs. Resp: CTAB with full breath sounds. No wheezes, crackles, or rhonchi. No dullness to percussion. Abdomen: Bowel sounds present. Soft, NT, ND. Extremities: No swelling or edema. Neurologic: Alert, not oriented. Does not answer questions will sometimes in teract. No focal neurologic deficits Assessment/Plan: #. Covid 19 pneumonia with superimposed multifocal pneumonia -Covering for MRSA with doxycycline, changing Rocephin to Cefdinir. Vancomycin discontinued. -Patient is nearly 10 days out from her Covid diagnosis, is on room air so no indication for dexamethasone. -We'll make patient ALC status and transition to oral antibiotics. Anticipate transfer to [facility] status and non-Covid unit at 12AM on Wednesday, 06/30. #. UTI -Awaiting urine culture, transitioning Rocephin to Ceftin ear renally dosed. #. Advanced dementia -It is unclear what the patient's baseline mental status is, per the custodial the patient was altered and lethargic last night. She does not appear to be lethargic but she has advanced dementia so it is difficult say whether she is altered outside of her normal amount currently. I do not see any signs of worsening illness currently. #. Hx of CAD -Do need to answer disease of this patient with regard to her dementia statins and aspirin a been discontinued. #. COPD -Not requiring supplemental oxygen, continue albuterol inhaler as needed #. Stage IV CKD -Creatinine seems to be at about baseline if not improved from what she has been on previous lab draws. #. DJD -Continue Tylenol #. History of Colon cancer with metastases to lung -Status post wedge resection in 2006, thought to be disease free currently but with no recent evaluations and no intention of pursuing further treatment per [facility] records. CODE STATUS: DNR/DNI with limited medical intervention DISPO: Pending her ability to return to [facility], Likely Wednesday. Patient is ALC status at this time. VS,Fishbone, I+O VS, Fishbone, I+O Laboratory Tests 06/27/20 19:47 Vital Signs Date Time Temp Pulse Resp B/P (MAP) Pulse Ox O2 Delivery O2 Flow Rate FiO2 06/28/20 09:00 98.1 94 17 127/74 (91) 94 Room Air I&O- Last 24 Hours up to 6 AM 06/28/20 06:00 Intake Total 0 ml Output Total 100 ml Balance -100 ml GME ATTESTATION GME ATTESTATION My faculty preceptor for this patient encounter was physically present during the encounter and was fully available. All aspects of the patient interview, examination, medical decision making process, and medical care plan development were reviewed and approved by the faculty preceptor. The faculty preceptor is aware and concurs with the plan as stated in the body of this note and will attest to such by his/her cosignature. ATTENDING NOTE I, Clayton Gonzales MD, have independently examined this patient and performed my own physical exam, as well as reviewed the documentation and edited where necessary. I have discussed in detail with the resident / student the findings and plan of treatment as documented by the resident / student and edited their note. I agree with their findings and treatment plan and have edited their documentation. DANIEL CULVER DO Jun 28, 2020 15:22 CLAYTON GONZALES MD Jul 05, 2020 12:31
[2020-06-28] MEDS: CEFDINIR 300 MG CAP (OMNICEF) PO SCH (15:27)
[2020-06-28] MEDS: DOXYCYCLINE HYCLATE 100MG TABLET PO SCH (22:47)
[2020-06-29 04:00] VITALS: BP 110/61
[2020-06-29] MEDS ORDERED: VANCOMYCIN HCL 750 MG, VIAL MATE ADAPTER 1 EACH in D5W 250 ML IV SCH (05:00)
[2020-06-29] MEDS: COMBIVENT RESPIMAT 100-20MCG INHALER 4GM INH SCH ×2 (07:31→20:00)
[2020-06-29 08:00] VITALS: O2SAT 94
[2020-06-29] MEDS: ENOXAPARIN 30MG/0.3ML SYRINGE (J1650 PER 10MG) SC SCH (08:31)
[2020-06-29] MEDS: ASPIRIN 81 MG ENTERIC TAB PO SCH (08:31)
[2020-06-29] MEDS: DOXYCYCLINE HYCLATE 100MG TABLET PO SCH ×2 (08:31→23:03)
[2020-06-29] MEDS: CEFDINIR 300 MG CAP (OMNICEF) PO SCH (08:31)
[2020-06-29 09:05] LABS: BASO # 0.1 10^3/uL (0.0-0.2); EOS # 0.1 10^3/uL (0.0-0.5); EOS % 2.4 % (0.0-3.0); HEMATOCRIT 42.7 % (36.0-47.0); HEMOGLOBIN 13.1 g/dl (12.0-15.5); LYMPH # 1.2 10^3/uL (1.5-5.0); LYMPH % 21.1 % (24.0-44.0); MEAN CORPUSCULAR HEMOGLOBIN 29.6 pg (27.0-33.0); MEAN CORPUSCULAR HGB CONC 30.7 g/dl (32.0-36.5); MEAN CORPUSCULAR VOLUME 96.4 fl (80.0-96.0); MONO # 0.6 10^3/uL (0.0-0.8); MONO % 10.4 % (0.0-5.0); NEUTROPHILS # 3.7 10^3/uL (1.5-8.5); NEUTROPHILS % 62.2 % (36.0-66.0); RED BLOOD COUNT 4.43 10^6/uL (4.00-5.40); WHITE BLOOD COUNT 5.9 10^3/uL (4.0-10.0)
[2020-06-29 09:25] LABS: ALBUMIN 2.5 GM/DL (3.2-5.2); BILIRUBIN,TOTAL 0.4 MG/DL (0.2-1.0); CALCIUM LEVEL 8.8 MG/DL (8.8-10.2); CREATININE FOR GFR 1.14 MG/DL (0.55-1.30); GLOMERULAR FILTRATION RATE 48.3 (>32); MAGNESIUM LEVEL 2.2 MG/DL (1.8-2.4); POTASSIUM SERUM 4.9 MEQ/L (3.5-5.1); TOTAL PROTEIN 6.3 GM/DL (6.4-8.2)
[2020-06-29 12:00] VITALS: O2SAT 95
[2020-06-29 16:00] VITALS: O2SAT 94
[2020-06-29 20:00] VITALS: BP 105/66
[2020-06-30 04:00] VITALS: BP 110/68
[2020-06-30] MEDS: COMBIVENT RESPIMAT 100-20MCG INHALER 4GM INH SCH ×2 (07:35→20:00)
[2020-06-30 08:00] VITALS: O2SAT 94
[2020-06-30] MEDS: ASPIRIN 81 MG ENTERIC TAB PO SCH (09:14)
[2020-06-30] MEDS: DOXYCYCLINE HYCLATE 100MG TABLET PO SCH ×2 (09:14→21:51)
[2020-06-30] MEDS: CEFDINIR 300 MG CAP (OMNICEF) PO SCH (09:14)
[2020-06-30] MEDS: ENOXAPARIN 30MG/0.3ML SYRINGE (J1650 PER 10MG) SC SCH (09:14)
[2020-06-30 09:20] LABS: ALBUMIN 2.9 GM/DL (3.2-5.2); ALT/SGPT 28 U/L (12-78); BILIRUBIN,DIRECT 0.2 MG/DL (0.0-0.2); BILIRUBIN,TOTAL 0.6 MG/DL (0.2-1.0); CPK CREATINE PHOSPHOKINASE 62 U/L (26-192); FERRITIN 145 NG/ML (8-252); LDH LACTATE DEHYDROGENASE 241 U/L (84-246); NT-PRO BNP 655 PG/ML (<450); TOTAL PROTEIN 6.7 GM/DL (6.4-8.2); TROPONIN I < 0.02 NG/ML (< 0.10)
[2020-06-30 09:29] LABS: INR 1.07; PROTHROMBIN TIME 14.1 SECONDS (12.5-14.3)
[2020-06-30 09:30] LABS: PARTIAL THROMBOPLASTIN TIME 27.3 SECONDS (24.2-38.5)
[2020-06-30 12:00] VITALS: O2SAT 94
[2020-06-30 16:00] VITALS: O2SAT 95
[2020-07-01 00:04] VITALS: BP 121/65
[2020-07-01 05:51] VITALS: BP 113/58
[2020-07-01] MEDS: COMBIVENT RESPIMAT 100-20MCG INHALER 4GM INH SCH ×2 (07:23→20:47)
[2020-07-01 08:00] VITALS: O2SAT 96
[2020-07-01] MEDS: CEFDINIR 300 MG CAP (OMNICEF) PO SCH (08:21)
[2020-07-01] MEDS: ASPIRIN 81 MG ENTERIC TAB PO SCH (08:21)
[2020-07-01] MEDS: ENOXAPARIN 30MG/0.3ML SYRINGE (J1650 PER 10MG) SC SCH (08:22)
[2020-07-01 10:00] VITALS: BP 130/78
[2020-07-01 12:00] VITALS: O2SAT 96
[2020-07-01 14:15] VITALS: BP 139/83
[2020-07-02 06:00] VITALS: BP 123/81
[2020-07-02 06:34] LABS: INR 1.06; PARTIAL THROMBOPLASTIN TIME 26.1 SECONDS (24.2-38.5)
[2020-07-02 07:03] LABS: ALT/SGPT 26 U/L (12-78); BILIRUBIN,DIRECT 0.2 MG/DL (0.0-0.2); BILIRUBIN,TOTAL 0.5 MG/DL (0.2-1.0); CPK CREATINE PHOSPHOKINASE 33 U/L (26-192); FERRITIN 97 NG/ML (8-252); LDH LACTATE DEHYDROGENASE 217 U/L (84-246); NT-PRO BNP 1224 PG/ML (<450); TOTAL PROTEIN 6.8 GM/DL (6.4-8.2); TROPONIN I < 0.02 NG/ML (< 0.10)
[2020-07-02] MEDS: COMBIVENT RESPIMAT 100-20MCG INHALER 4GM INH SCH ×2 (07:24→18:06)
[2020-07-02] MEDS: CEFDINIR 300 MG CAP (OMNICEF) PO SCH (09:57)
[2020-07-02] MEDS: ASPIRIN 81 MG ENTERIC TAB PO SCH (09:57)
[2020-07-02] MEDS: ENOXAPARIN 30MG/0.3ML SYRINGE (J1650 PER 10MG) SC SCH (09:58)
[2020-07-02 18:07] LABS: MYCOPLASMA PNEUMONIAE IgG 200 U/mL (0-99); MYCOPLASMA PNEUMONIAE IgM <770 U/mL (0-769)
[2020-07-03 06:00] VITALS: BP 132/81
[2020-07-03] MEDS: COMBIVENT RESPIMAT 100-20MCG INHALER 4GM INH SCH (07:09)
[2020-07-03] MEDS: ASPIRIN 81 MG ENTERIC TAB PO SCH (08:55)
[2020-07-03] MEDS: CEFDINIR 300 MG CAP (OMNICEF) PO SCH (08:55)
[2020-07-03] MEDS: ENOXAPARIN 30MG/0.3ML SYRINGE (J1650 PER 10MG) SC SCH (08:55)
--- NOTE | 2020-07-03 12:25 | DS.PDOC ---
Discharge Summary General Date of Admission Jun 28, 2020 at 00:18 Date of Discharge 07/03/20 Discharge Summary DISCHARGE DIAGNOSES: coronavirus-19 positive s/p monoclonal antibody infusion UTI with Escherichia hermanii Acute metabolic encephalopathy 4.6 CM incidental finding-Fusiform aneurysm of the ascending thoracic aorta. Multifocal pneumonia. Emphysema/ COPD 1.9 cm nodule in the left lobe of the thyroid gland. Dementia CAD Colon cancer with mets to the lungs / hx of partial colectomy GERD OA history of Cataract surgery history of Right breast lumpectomy DISCHARGE MEDICATIONS: Please see below. ALLERGIES: Please see below. DISCHARGE INSTRUCTIONS: covid positive pcp fu in 5days CT chest had incidental findings of a fusiform aneurysm and thyroid nodule which her pcp can monitor as outpt. HOSPITAL COURSE: 85 yr old F, SNF resident, with recent history of COVID 19 on Jun 19 despite receiving her first dose of her vaccine in early May and mono-colonal antibodies on Jun 21 sent to the ER due to acute encephalopathy, found to have multifocal pneumonia on CT chest, but was not hypoxic, with decreasing inflammatory markers and afebrile. She was not a candidate for steroid therapy or remdesevir, and was treated for possible bacterial pneumonia with IV vanco, ceftriaxone, and doxycycline, which was de-escalated to renally dosed cefdinir. She completed a full 5 day course of antibiotics. Urine cx: Escherichia sensitive to IV ceftriaxone. Pt was kept in ALC/SNF status due to her positive covid status and could not be discharged back to her SNF. Pt is medically stable. CT chest had incidental findings of a fusiform aneurysm and thyroid nodule which her pcp can monitor as outpt. REVIEW OF SYSTEMS: unobtainable because the patient is confused PHYSICAL EXAMINATION ON DISCHARGE: VITAL SIGNS: Please see below. General: Cachectic no acute distress. No use of accessory respiratory muscles awake, alert, oriented to person only HEENT: no scleral icterus. mucous membranes moist. No lymphadenopathy or JVD CV: RRR, Normal S1 and S2. No murmurs, gallops, or rubs. Resp: CTAB with full breath sounds.. No adventitious breath sounds Abdomen: Bowel sounds 4 quadrants. Soft, NT, ND. , No hepatosplenomegaly Extremities: No cyanosis, clubbing or pitting edema LABORATORY DATA: Please see below. IMAGING: CT CHEST: Exam: CT Angiography Chest With Contrast Exam date and time: 06/27/2020 9:58 PM Age: 85 years old Clinical indication: Abnormal findings; Abnormal diagnostic tests; Elevated d-dimer; Additional info: AMS, ddimer TECHNIQUE: Imaging protocol: Computed tomographic angiography of the chest with intravenous contrast. 3D rendering (Not supervised by radiologist): MIP and/or 3D reconstructed images were created by the technologist. Radiation optimization: All CT scans at this facility use at least one of these dose optimization techniques: automated exposure control; mA and/or kV adjustment per patient size (includes targeted exams where dose is matched to clinical indication); or iterative reconstruction. Contrast material: ISOVUE 370; Contrast volume: 75 ml; Contrast route: INTRAVENOUS (IV); COMPARISON: CT Chest with contrast 09/13/2013 10:58 AM FINDINGS: Tubes, catheters and devices: MediPort catheter extends in the SVC. Pulmonary arteries: No pulmonary emboli. 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 No aortic dissection. Moderate amount of soft plaque in the descending thoracic aorta. Thyroid: 1.9 cm nodule in the left lobe of the thyroid gland. Lungs: Mild centrilobular emphysematous changes. Multifocal patchy airspace opacities with interstitial thickening in both lungs. Mild bronchial wall thickening in the lung bases. Pleural spaces: Unremarkable. No pneumothorax. No pleural effusion. Heart: Normal heart size. Mild coronary artery atherosclerotic disease. Lymph nodes: Unremarkable. No enlarged lymph nodes. Bones/joints: Skeletal degenerative changes are noted. Soft tissues: Unremarkable. IMPRESSION: 1. 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 2. Multifocal pneumonia. 3. Emphysema. COMMENTS: Consistent with the [place] [employer]'s Incidental Findings Committee white paper (J Am Oli Radiol 2015): In patients aged 35 years and older with an incidental thyroid nodule equal to or greater than 1.[address], MRI or extrathyroidal US, further evaluation with dedicated thyroid US is recommended for patients with normal life expectancy and without comorbidities. For smaller nodules without suspicious features, no further evaluation or follow up is recommended. Electronically signed by: Kushal Neal On 06/27/2020 22:42:54 PM CTHEAD: Exam: CT Head Without Contrast Exam date and time: 06/27/2020 9:58 PM Age: 85 years old Clinical indication: Altered mental status/memory loss; Confusion or disorientation; Additional info: AMS TECHNIQUE: Imaging protocol: Computed tomography of the head without contrast. Radiation optimization: All CT scans at this facility use at least one of these dose optimization techniques: automated exposure control; mA and/or kV adjustment per patient size (includes targeted exams where dose is matched to clinical indication); or iterative reconstruction. COMPARISON: CT Head without contrast 06/16/2018 3:51 PM FINDINGS: Limitations: Patient motion. Brain: There is no acute cortical infarction, intracranial hemorrhage or mass.There is mild diffuse heterogeneity of the white matter, most consistent with microangiopathy. Cerebral ventricles: The ventricles appear enlarged, but not out of proportion to the degree of parenchymal volume loss. Bones/joints: Unremarkable. No acute fracture. Paranasal sinuses: There is fluid in a right sphenoid air cell.The remainder of the paranasal sinuses appear clear. Mastoid air cells: Visualized mastoid air cells are well aerated. Vasculature: Atherosclerosis. Soft tissues: Unremarkable. IMPRESSION: No acute intracranial findings. Findings are stable in comparison to the 06/16/2018 CT although there is now fluid in a right sphenoid air cell which was not present on the prior study. Electronically signed by: Severo Scruggs On 06/27/2020 22:56:40 PM TIME SPENT ON DISCHARGE: 30 minutes. Vital Signs/I&Os Vital Signs Date Time Temp Pulse Resp B/P (MAP) Pulse Ox O2 Delivery O2 Flow Rate FiO2 07/03/20 06:00 97.7 86 17 132/81 (98) 96 Room Air I&O- Last 24 Hours up to 6 AM0 07/03/20 06:00 Intake Total 345 ml Balance 345 ml Microbiology Microbiology 06/27/20 Urine Culture - Final, Complete Escherichia Hermannii 06/27/20 Blood Culture - Final, Complete NO GROWTH AFTER 5 DAYS 06/27/20 Blood Culture - Final, Complete NO GROWTH AFTER 5 DAYS Discharge Medications Scheduled Acetaminophen (Acetaminophen) 500 Mg Tablet, 500 MG PO TID, (Reported) Ascorbic Acid (Vitamin C with Alisa Hips) 1,000 Mg Tablet, 1,000 MG PO QID, (Reported) Calcium Carbonate (Tums X-Str) 300 Mg Tab.chew, 750 MG PO BID, (Reported) Cholecalciferol (Vitamin D3) (Vitamin D3) 25 Mcg Tab.chew, 2,000 UNITS PO QHS, (Reported) Enoxaparin Sodium (Enoxaparin Sodium) 40 Mg/0.4 Ml Syringe, 40 MG SC QPM, (Reported) Guaifenesin/Dextromethorphan (Robitussin Cough-Chest Dm Liq) 237 Ml Liquid, 10 ML PO QID, (Reported) Ipratropium/Albuterol Sulfate (Iprat-Albut 0.5-3(2.5) mg/3 ml) 3 Ml Ampul.neb, 1 VIAL NEB TID, (Reported) Zinc Sulfate (Zinc Sulfate) 220 Mg Capsule, 220 MG PO BID, (Reported) Scheduled PRN Acetaminophen (Feverall) 650 Mg Sup, 650 MG [place] Q4H PRN for PAIN / FEVER, (Reported) Acetaminophen (Acetaminophen) 325 Mg Tab, 650 MG PO Q4H PRN for PAIN, (Reported) Albuterol Sulfate (Albuterol Sulfate) 2.5 Mg/0.5 Ml Vial.neb, 1 VIAL NEB Q2H PRN for SOB/COUGH, (Reported) Bisacodyl (Dulcolax) 10 Mg Sup, 10 MG [place] DAILY PRN for CONSTIPATION, (Reported) Diphenhydramine HCl (Diphenhydramine HCl) 25 Mg Capsule, 25 MG PO ONCE PRN for ALLERGIC REACTION, (Reported) Magnesium Hydroxide (Milk of Magnesia) 400 Mg/5 Ml Oral.susp, 2,400 MG PO DAILY PRN for CONSTIPATION, (Reported) Sodium Phosphate,Randolph-Dibasic (Enema Ncszf-Qs-Cas) 1 Perez Perez, 1 PEREZ [place] DAILY PRN for CONSTIPATION, (Reported) Allergies Coded Allergies: SEASONAL ALLERGIES (Verified Allergy, Unknown, 04/15/07) SEVERO BROWN MD Jul 03, 2020 12:11
== END 2020-07-03 16:17 | DRG 177 ==
LOC: EDBD 17:23 → M ED 17:23 → M ED INP 06-28 00:18 → M 4MAIN 06-28 02:44 → M MSPAV 07-01 14:18
PROVIDERS: ADMIT Internal Medicine; ATTEND General Practice
DX: U07.1 COVID-19 (principal); G93.41 Metabolic encephalopathy; J12.82 Pneumonia due to coronavirus disease 2019; N39.0 Urinary tract infection, site not specified; N18.4 Chronic kidney disease, stage 4 (severe); J43.9 Emphysema, unspecified; K21.9 Gastro-esophageal reflux disease without esophagitis; M19.90 Unspecified osteoarthritis, unspecified site; F03.90 Unspecified dementia, unspecified severity, without behavioral disturbance, psychotic disturbance, mood disturbance, and anxiety; I25.10 Atherosclerotic heart disease of native coronary artery without angina pectoris; E04.1 Nontoxic single thyroid nodule; Z85.038 Personal history of other malignant neoplasm of large intestine; Z85.118 Personal history of other malignant neoplasm of bronchus and lung; I71.2 Thoracic aortic aneurysm, without rupture; B96.29 Other Escherichia coli [E. coli] as the cause of diseases classified elsewhere; Z79.899 Other long term (current) drug therapy

== ENCOUNTER → 2020-06-27 | Outpatient (REF) | payer MEDICARE, MEDICAID ==
[2020-06-27 12:09] LABS: HEMATOCRIT 41.7 % (36.0-47.0); HEMOGLOBIN 13.3 g/dl (12.0-15.5); MEAN CORPUSCULAR HEMOGLOBIN 30.4 pg (27.0-33.0); MEAN CORPUSCULAR HGB CONC 31.9 g/dl (32.0-36.5); MEAN CORPUSCULAR VOLUME 95.4 fl (80.0-96.0); PLATELET COUNT, AUTOMATED 269 10^3/uL (150-450); RED BLOOD COUNT 4.37 10^6/uL (4.00-5.40)
[2020-06-27 13:24] LABS: CREATININE FOR GFR 1.29 MG/DL (0.55-1.30); GLOMERULAR FILTRATION RATE 41.9 (>32); POTASSIUM SERUM 4.2 MEQ/L (3.5-5.1)
== END ==
LOC: SKLAB6 08:00
DX: E86.0 Dehydration (principal)

== ENCOUNTER → 2020-07-31 | Outpatient (REF) | payer MEDICARE, MEDICAID ==
[~2020-07-31] MED LIST changes: +ACET500T15 PO; +ALB2.5NEB NEB; +ASPI-569 PO; -ASPI81TAEC PO; +DIPH25CA32 PO; +ENOX40IN3 SC; +IPRA0.00 NEB; +MILKSUS22 PO; -QUET1TAB7 PO; +QUET25TA3 PO; +QUET50TA3 PO; -QUET5TAB PO; +ROBI1LIQ9 PO; +TUMS750C20 PO; +VITA-176 PO; +VITA-36 PO; +ZINC220CA PO
[2020-07-31 07:05] LABS: HEMATOCRIT 46.7 % (36.0-47.0); HEMOGLOBIN 14.7 g/dl (12.0-15.5); MEAN CORPUSCULAR HEMOGLOBIN 29.7 pg (27.0-33.0); MEAN CORPUSCULAR HGB CONC 31.5 g/dl (32.0-36.5); MEAN CORPUSCULAR VOLUME 94.3 fl (80.0-96.0); PLATELET COUNT, AUTOMATED 172 10^3/uL (150-450); RED BLOOD COUNT 4.95 10^6/uL (4.00-5.40)
[2020-07-31 07:27] LABS: CALCIUM LEVEL 9.3 MG/DL (8.8-10.2); CREATININE FOR GFR 1.99 MG/DL (0.55-1.30); GLOMERULAR FILTRATION RATE 25.4 (>32); POTASSIUM SERUM 4.3 MEQ/L (3.5-5.1)
[2020-07-31 07:59] LABS: ALBUMIN 3.1 GM/DL (3.2-5.2); BILIRUBIN,TOTAL 0.3 MG/DL (0.2-1.0); THYROID STIMULATING HORMONE 1.45 uIU/ML (0.358-3.740); TOTAL PROTEIN 6.8 GM/DL (6.4-8.2)
== END ==
LOC: SKLAB6 08:00
DX: N18.9 Chronic kidney disease, unspecified (principal); Z79.899 Other long term (current) drug therapy

== ENCOUNTER → 2020-08-02 | Outpatient (REF) | payer MEDICARE, MEDICAID ==
[2020-08-02 07:07] LABS: CALCIUM LEVEL 8.9 MG/DL (8.8-10.2); CREATININE FOR GFR 2.18 MG/DL (0.55-1.30); GLOMERULAR FILTRATION RATE 22.9 (>32); POTASSIUM SERUM 4.2 MEQ/L (3.5-5.1)
== END ==
LOC: SKLAB6 06:00
DX: I50.9 Heart failure, unspecified (principal)

== ENCOUNTER → 2020-08-05 | Outpatient (REF) | payer MEDICARE, MEDICAID ==
[2020-08-05 07:21] LABS: CALCIUM LEVEL 9.1 MG/DL (8.8-10.2); CREATININE FOR GFR 1.86 MG/DL (0.55-1.30); GLOMERULAR FILTRATION RATE 27.5 (>32); POTASSIUM SERUM 4.6 MEQ/L (3.5-5.1)
== END ==
LOC: SKLAB6 07:00
DX: N18.9 Chronic kidney disease, unspecified (principal)

== ENCOUNTER → 2020-08-08 | Outpatient (REF) | payer MEDICARE, MEDICAID ==
[2020-08-08 13:21] LABS: CALCIUM LEVEL 8.7 MG/DL (8.8-10.2); CREATININE FOR GFR 1.7 MG/DL (0.55-1.30); GLOMERULAR FILTRATION RATE 30.5 (>32); POTASSIUM SERUM 3.9 MEQ/L (3.5-5.1)
== END ==
LOC: SKLAB6 08:00
DX: N18.9 Chronic kidney disease, unspecified (principal)

== ENCOUNTER → 2020-08-19 | Outpatient (REF) | payer MEDICARE, MEDICAID ==
[2020-08-19 11:56] LABS: CREATININE FOR GFR 1.67 MG/DL (0.55-1.30); GLOMERULAR FILTRATION RATE 31.1 (>32); POTASSIUM SERUM 4.5 MEQ/L (3.5-5.1)
== END ==
LOC: SKLAB6 08:00
DX: N18.9 Chronic kidney disease, unspecified (principal)

== ENCOUNTER → 2020-09-16 | Outpatient (REF) | payer MEDICARE, MEDICAID ==
[~2020-09-16] MED LIST changes: +MILK24002 PO; -MILKSUS22 PO
[2020-09-16 14:44] LABS: CALCIUM LEVEL 9.4 MG/DL (8.8-10.2); CREATININE FOR GFR 1.65 MG/DL (0.55-1.30); GLOMERULAR FILTRATION RATE 31.6 (>32); POTASSIUM SERUM 4.2 MEQ/L (3.5-5.1)
== END ==
LOC: SKLAB6 09:00
DX: N18.9 Chronic kidney disease, unspecified (principal)